=== PATIENT | male | born 1960 | race African-American/Black ===

== ENCOUNTER 2018-03-08 11:26 | Emergency (ER) | payer BC ==
[2018-03-08 11:51] LABS: #Eosinphils 0.3 thou/uL (0.0-0.7); #Lymphocytes 2.6 thou/uL (1.20-3.40); #Monocytes 0.8 thou/uL (0.11-0.59); #Neutrophils 6.2 thou/uL (1.40-6.50); %Basophils 0.3 % (0.0-1.0); %Eosinophils 3.1 % (0.0-10.0); %Monocytes 8.2 % (0.0-10.0); %Neutrophils 62.5 % (42.0-75.0); Hemoglobin 12.3 g/dL (14.0-18.0); Mean Corpuscular HGB CONC 33.8 g/dL (32.0-36.0); Mean Corpuscular Hemoglobin 30.5 pg (27.0-31.0); Mean Corpuscular Volume 90.1 fl (80.0-94.0); Mean Platelet Volume 7.4 fL (7.4-10.4); Platelet Count 284 thou/uL (130-400); RBC Distribution Width 12.7 % (11.5-14.5); Red Blood Cell (RBC) Count 4.04 mill/uL (4.70-6.10); White Blood Cell (WBC) Count 9.9 thou/uL (4.8-10.8)
[2018-03-08 12:14] LABS: ALT (SGPT) 30 U/L (8-55); AST (SGOT) 20 U/L (5-34); Albumin 4.4 g/dL (3.5-5.0); Alkaline Phosphatase 64 U/L (40-150); Anion Gap 15 mmol/L (10-20); BUN (Urea Nitrogen) 55 mg/dL (8.4-25.7); Bilirubin, Total 0.4 mg/dL (0.2-1.2); Calc. Creatinine Clearance 0 mL/min (70-130); Calcium 10.1 mg/dL (7.8-10.44); Carbon Dioxide 17 mmol/L (22-29); Chloride 109 mmol/L (98-107); Estimated GFR-MDRD 22; Globulin 3.9 g/dL (2.4-3.5); Glucose 162 mg/dL (70-105); Protein, Total 8.3 g/dL (6.0-8.3); Sodium 134 mmol/L (136-145)
[2018-03-08 12:23] LABS: Potassium 6.8 mmol/L (3.5-5.1)
[2018-03-08 13:03] LABS: Troponin I 0.027 ng/mL (< 0.028)
[2018-03-08 13:11] LABS: CKMB 6.8 ng/mL (0-6.6)
== END 2018-03-08 14:36 | disposition home or self-care (01) ==
LOC: ERS 11:26
DX: E87.5 Hyperkalemia (principal); I10 Essential (primary) hypertension; E11.9 Type 2 diabetes mellitus without complications; Z79.899 Other long term (current) drug therapy; Z79.84 Long term (current) use of oral hypoglycemic drugs
CPT/HCPCS: 36415; 80053; 82553; 84484; 85025; 93005; 96360

== ENCOUNTER 2020-01-12 04:01 | Inpatient (IN) | payer BC ==
[2020-01-12 04:31] LABS: #Basophils 0.1 thou/uL (0.0-0.2); #Eosinphils 0.2 thou/uL (0.0-0.7); #Lymphocytes 2.2 thou/uL (1.20-3.40); #Monocytes 0.6 thou/uL (0.11-0.59); #Neutrophils 3.3 thou/uL (1.40-6.50); %Basophils 1.2 % (0.0-1.0); %Eosinophils 3.5 % (0.0-10.0); %Lymphocytes 34.2 % (21.0-51.0); %Monocytes 9.3 % (0.0-10.0); %Neutrophils 51.8 % (42.0-75.0); Mean Corpuscular Hemoglobin 30.9 pg (27.0-31.0); Mean Corpuscular Volume 90.7 fL (78.0-98.0); Mean Platelet Volume 9.8 fL (7.4-10.4); Platelet Count 228 thou/uL (130-400); RBC Distribution Width 11.9 % (11.5-14.5); Red Blood Cell (RBC) Count 4.54 mill/uL (4.70-6.10); White Blood Cell (WBC) Count 6.3 thou/uL (4.8-10.8)
[2020-01-12 04:37] LABS: INR-International Normal Ratio 0.9; Prothrombin Time 12.1 SEC (12.0-14.7)
[2020-01-12 05:02] LABS: ALT (SGPT) 31 U/L (8-55); AST (SGOT) 19 U/L (5-34); Albumin 4.1 g/dL (3.5-5.0); Alcohol Less than 10 mg/dL (Less than 10); Alkaline Phosphatase 78 U/L (40-110); Anion Gap 15 mmol/L (10-20); BUN (Urea Nitrogen) 40 mg/dL (8.4-25.7); Bilirubin, Total 0.4 mg/dL (0.2-1.2); Calc. Creatinine Clearance 0 mL/min (70-130); Calcium 9.6 mg/dL (7.8-10.44); Carbon Dioxide 20 mmol/L (22-29); Chloride 94 mmol/L (98-107); Estimated GFR-MDRD 24; Globulin 3.8 g/dL (2.4-3.5); Potassium 4.9 mmol/L (3.5-5.1); Protein, Total 7.9 g/dL (6.0-8.3); Sodium 124 mmol/L (136-145)
[2020-01-12 05:07] LABS: Bacteria/HPF None Seen HPF (None Seen); Bilirubin Negative (Negative); Blood, Urine Trace (Negative); Clarity Clear (Clear); Glucose, Urine (Dipstick) Greater than 1000 mg/dL (Negative); Leukocyte Negative Leu/uL (Negative); Nitrite Negative (Negative); Protein, Urine (Dipstick) 70 mg/dL (Neg-Trace); RBC/HPF 0-3 HPF (0-3); Squamous Epithelial None Seen HPF (0-3); Urobilinogen Normal mg/dL (Less than 2); WBC/HPF 0-3 HPF (0-3)
[2020-01-12 05:11] LABS: Glucose 832 mg/dL (70-105)
[2020-01-12 05:30] LABS: CKMB 5.2 ng/mL (0-6.6)
[2020-01-12] MEDS ORDERED: Insulin Regular 100 units/100 ml in NS IVPB SCH (05:30)
[2020-01-12] MEDS ORDERED: Aspirin 325 MG TAB ONE (05:45)
[2020-01-12] MEDS ORDERED: NS 0.9% w/ 20 MEQ KCL 1,000 ML IV PRN ×2 (05:49)
[2020-01-12] MEDS ORDERED: CCU Electrolyte Replacement 1 EACH IVPB ONE (05:49)
[2020-01-12] MEDS ORDERED: Dextrose 5 %-0.45 % NaCl 1,000 ML IV PRN (05:49)
[2020-01-12] MEDS ORDERED: D5 1/2 NS w/20 mEq KCL 1,000 ML IV PRN (05:49)
[2020-01-12] MEDS ORDERED: Sodium Chloride 0.9% 1,000 ML IV PRN ×4 (05:49)
[2020-01-12] MEDS ORDERED: Potassium Phosphate 12 MMOL in Sodium Chloride 0.9% 250 ML 250 ML IV PRN (05:52)
[2020-01-12] MEDS ORDERED: Magnesium 2 GM/50 ML 2 GM in Premix Bag 1 BAG IVPB PRN (05:52)
[2020-01-12] MEDS ORDERED: PHOS-NAK 1 PKT PACK PO PRN ×2 (05:52)
[2020-01-12] MEDS ORDERED: CCU ELECTROLYTE REPLACEMENT PROTOCOL FS PRN (05:52)
[2020-01-12] MEDS ORDERED: Potassium Phosphate 15 MMOL in Sodium Chloride 0.9% 250 ML 250 ML IV PRN (05:52)
[2020-01-12] MEDS ORDERED: Potassium Phosphate 9 MMOL in Sodium Chloride 0.9% 100 ML IVPB PRN (05:52)
[2020-01-12] MEDS ORDERED: Potassium Chloride 40 MEQ in Premix Bag 1 BAG IVPB PRN (05:52)
[2020-01-12] MEDS ORDERED: Potassium Chloride 40 MEQ in Sodium Chloride 0.9% 250 ML 250 ML IVPB PRN (05:52)
[2020-01-12] MEDS ORDERED: Potassium Chloride 20 MEQ TAB PO PRN (05:52)
[2020-01-12] MEDS ORDERED: Magnesium Oxide 400 MG TAB PO PRN ×2 (05:52)
[2020-01-12] MEDS ORDERED: Labetalol HCl 100 MG/20 ML VIAL ONE (05:55)
[2020-01-12] MEDS ORDERED: HUMULIN R 100 UNITS in Sodium Chloride 0.9% 100 ML IVPB SCH (06:00)
[2020-01-12 06:39] LABS: Anion Gap 15 mmol/L (10-20); BUN (Urea Nitrogen) 40 mg/dL (8.4-25.7); Calc. Creatinine Clearance 0 mL/min (70-130); Calcium 9.1 mg/dL (7.8-10.44); Carbon Dioxide 20 mmol/L (22-29); Chloride 97 mmol/L (98-107); Estimated GFR-MDRD 26; Sodium 127 mmol/L (136-145)
--- NOTE | 2020-01-12 06:44 | HP ---
CHIEF COMPLAINT: Facial droop and impaired speech. HISTORY OF PRESENT ILLNESS: Mr. Anders is a 59-year-old male with past medical history of diabetes mellitus, type 2; hypertension; chronic kidney disease; hyperlipidemia, presented to the emergency room with difficulty speech/dysarthria that started around 4:00 a.m. upon awakening from sleep. The patient was last known well around 11:00 p.m. last night. No confusion. No weakness. The patient was found to have a glucose of 832. Anion gap is normal. The patient also was found to have worsening of kidney function with creatinine of 3.25. Denies fevers, chills, chest pain, vomiting, or diarrhea. The patient was started on IV fluids and insulin. CT of the brain, CTA of brain and neck, no acute finding. The patient is being admitted to hospital for further management. PAST MEDICAL HISTORY: As mentioned above in history of present illness. PAST SURGICAL HISTORY: No surgical history recorded. FAMILY HISTORY: Reviewed and noncontributory. SOCIAL HISTORY: He drinks socially. No smoking history. HOME MEDICATIONS: Please see home medication reconciliation form for updated medications. ALLERGIES: NO KNOWN ALLERGIES. PHYSICAL EXAMINATION: GENERAL: The patient is awake and alert, difficulty speech/dysarthria, some facial twitching on the left. VITAL SIGNS: Blood pressure 172/110, pulse is 102, temperature is 98.7, and pulse oximetry is 97% on room air. HEAD AND NECK: Normocephalic and atraumatic. Neck is supple. Mucous membranes dry. CHEST: Decreased air entry bilaterally. HEART: S1 and S2. Regular. ABDOMEN: Obese and soft. Bowel sounds present. NEUROLOGIC: Awake, alert, and oriented x4. There is dysarthria, twitches on the left side of the mouth, and mild facial drooping. EXTREMITIES: No clubbing. No cyanosis. GENITOURINARY: No suprapubic tenderness. No flank tenderness. LABORATORY DATA: As mentioned above in history of present illness. IMAGING STUDIES: As mentioned above in history of present illness. Also, the patient had troponin of 0.04. The patient denies chest pain. ASSESSMENT: 1. Hyperglycemic hyperosmolar state. 2. Cerebrovascular accident, acute cannot be entirely ruled out. 3. Dysarthria. 4. Hypertensive urgency in the setting of stroke symptoms and hyperglycemia. 5. Acute on chronic renal failure. 6. Hyperlipidemia. PLAN: 1. Admit to IMCU. 2. Continue IV fluids. 3. Insulin. 4. Monitor and control electrolytes. 5. Monitor and control blood pressure. 6. MRI of the brain. 7. Consult Neurology in a.m. for evaluation and further recommendations. 8. Reconcile home medications. 9. DVT prophylaxis appropriate. 10. Expected length of stay, 2 midnights or more. Job ID: [id number]
[2020-01-12 06:55] LABS: Glucose 780 mg/dL (70-105)
[2020-01-12] MEDS ORDERED: Ondansetron PF 4 MG/2 ML Vial IVP PRN (06:57)
[2020-01-12] MEDS ORDERED: Ondansetron ODT 4 MG TAB PO PRN (06:57)
--- NOTE | 2020-01-12 08:01 | CT ---
PRELIMINARY REPORT/[facility]/EMERGENCY AFTER HOURS PROCEDURE Receipt of this report by the clinical staff was confirmed with Lila Bryant MD by Piotr sanchez on Jan 12, 2020 04:58:00 CDT. Addendum electronically signed by Belkys sanchez on January 12, 2020 4:58:11 AM CDT PROCEDURE: CTA Head and Neck . HISTORY: LEFT facial droop and dysarthria. TECHNIQUE: Computerized tomographic angiography of the head and neck was performed after the IV inje ction of iodinated nonionic contrast. Multiplanar and 3-D reformations with maximum intensity and surface-shaded reformations . NOTE: The degree of internal carotid artery stenosis is reported using NASCET criteria. COMPARISONS: None . FINDINGS: Visualized CHEST and Aorta: Unremarkable . NECK RIGHT Carotid: Unremarkable . Vertebral: Unremarkable. RIGHT vertebral artery dominant system. LEFT Carotid: Unremarkable . Vertebral: Unremarkable . Non-vascular soft tissues: Unremarkable . HEAD RIGHT Carotid siphon: Unremarkable . Anterior cerebral: Unremarkable . Middle cerebral: Unremarkable . Posterior cerebral: Unremarkable . LEFT Carotid siphon: Unremarkable . Anterior cerebral: Unremarkable . Middle cerebral: Unremarkable . Posterior cerebral: Unremarkable . Vertebral and Basilar arteries: LEFT vertebral ends in the LEFT posterior inferior cerebellar artery. RIGHT vertebral and basilar artery are unremarkable. Aneurysms and AVMs: None . Dural Sinuses: Unremarkable . Non-vascular brain: No abnormal enhancement . IMPRESSION: No significant vascular abnormality identified. ELECTRONICALLY SIGNED BY: Scottie Gilman MD Jan 12, 2020 4:54:15 AM CDT This report is intended for review by the ordering physician only, in accordance of law. If you recei ve this report in error, please call [facility] at [phone]. FINAL REPORT CT arteriogram neck with IV contrast and 3-D imaging CT arteriogram head with IV contrast and 3-D imaging 01/12/2020, performed on emergency basis at 0432 hours HISTORY: Acute left facial droop. Dysarthria. FINDINGS: Agree with the preliminary report by Dr. Gilman from [facility]. No acute vascular abn ormalities are demonstrated. Good flow into each cerebral and cerebellar system. Diffuse prominence in size of the aortic arch is noted without acute abnormality demonstrated. Code QA. Transcribed Date/Time: 01/12/2020 8:34 AM
[2020-01-12] MEDS: hydrALAZINE 20 MG/ML VIAL SLOW IVP PRN ×2 (08:08→12:26)
[2020-01-12] MEDS: Aspirin 325 mg Enteric Coated Tablet PO SCH (08:10)
--- NOTE | 2020-01-12 08:39 | CT ---
PRELIMINARY REPORT/[facility]/EMERGENCY AFTER HOURS PROCEDURE: Receipt of this report by the clinical staff was confirmed with Franci Han RN by Blane Tan on Jan 12, 2020 04:43:00 CDT. Addendum electronically signed by Aria Tan on January 12, 2020 4:43:54 AM CDT PROCEDURE: CT Head without Contrast . HISTORY: Rule out stroke. TECHNIQUE: Axial images were performed without the administration of IV contrast with or without mult iplanar reformations . COMPARISON: None . FINDINGS: Brain shows no mass, hemorrhage, or acute stroke. Mild periventricular old microischemic changes. Mild diffuse cerebral and cerebellar atrophy. Ventricles are normal size for patient's age. No acute skull or scalp abnormality. Visualized sinuses and mastoids are clear. IMPRESSION: No acute intracranial abnormality. Senescent changes . ELECTRONICALLY SIGNED BY: Scottie Gilman MD Jan 12, 2020 4:35:09 AM CDT This report is intended for review by the ordering physician only, in accordance of law. If you recei ve this report in error, please call [facility] at [phone]. FINAL REPORT EMERGENCY AFTER HOURS CT BRAIN: IMPRESSION: I agree with the preliminary interpretation given by [facility]. No evidence for intracranial hemorrhage or mass effect. POS: WEND[facility]
[2020-01-12 08:43] LABS: Troponin I 0.059 ng/mL (< 0.028)
[2020-01-12 08:46] VITALS: BMI 34.3
[2020-01-12] MEDS: Heparin 5,000 UNITS/ML VIAL SC SCH ×2 (08:56→20:39)
[2020-01-12] MEDS ORDERED: Iopamidol-370 76% 500 ML 1 ML ONE (09:21)
--- NOTE | 2020-01-12 11:20 | MRI ---
MRI OF BRAIN: DATE: 01/12/2020. PROVIDED CLINICAL HISTORY: Slurred speech. FINDINGS: The ventricular system appears normal in size and morphology. There is no evidence for intracranial hemorrhage or mass effect. There is no restricted diffusion to suggest recent infarction. Chronic m icrovascular ischemic changes are seen involving the cerebral white matter. Appropriate flow voids a re seen within the major intracranial vessels. The extracranial soft tissues and calvarial marrow si gnal demonstrate no significant abnormality. IMPRESSION: No evidence for an acute intracranial abnormality. POS: WENDY
[2020-01-12] MEDS ORDERED: HumaLOG 300 UNITS/3 ML VIAL SC SCH ×3 (12:00→17:00)
[2020-01-12 12:21] LABS: Hemoglobin A1c Greater than 14.0 % (4.0-6.0)
[2020-01-12 12:30] LABS: Anion Gap 13 mmol/L (10-20); BUN (Urea Nitrogen) 33 mg/dL (8.4-25.7); Calc. Creatinine Clearance 50 mL/min (70-130); Calcium 9.2 mg/dL (7.8-10.44); Carbon Dioxide 19 mmol/L (22-29); Chloride 107 mmol/L (98-107); Estimated GFR-MDRD 31; Glucose 396 mg/dL (70-105); Potassium 4.1 mmol/L (3.5-5.1); Sodium 135 mmol/L (136-145)
[2020-01-12 12:37] LABS: Troponin I 0.066 ng/mL (< 0.028)
[2020-01-12] MEDS ORDERED: cloNIDine 0.1 MG TAB PO PRN (14:06)
--- NOTE | 2020-01-12 14:12 | PDOC.HOSPP ---
- Subjective Encounter Date: 01/12/20 Encounter Time: 10:30 Subjective: pt up in bed no complains. - Objective Vital Signs & Weight: Vital Signs (12 hours) Temp Pulse Resp BP BP Pulse Ox 01/12/20 12:56 97.8 F 106 H 18 162/86 H 98 01/12/20 12:26 95 165/101 H 01/12/20 08:00 97 Weight Weight 253 lb 1.451 oz Most Recent Monitor Data Heart Rate from ECG 100 NIBP 156/102 NIBP BP-Mean 120 Respiration from ECG 24 SpO2 99 I&O: 01/11/20 01/12/20 01/13/20 06:59 06:59 06:59 Intake Total 1616 Output Total 1150 Balance 466 Result Diagrams: 01/12/20 04:01/12/20 12:01 Additional Labs: Accuchecks 01/12/20 01/12/20 01/12/20 12:22 10:47 09:54 POC Glucose 429 H 414 H 422 H Hospitalist ROS - Review of Systems Cardiovascular: denies: chest pain, palpitations, orthopnea, paroxysmal noc. dyspnea, edema, light headedness, other Gastrointestinal: denies: nausea, vomiting, abdominal pain, diarrhea, constipation, melena, hematochezia, other Genitourinary: denies: dysuria, frequency, incontinence, hematuria, retention, other - Medication Medications: Active Medications Generic Name Dose Route Start Last Admin Trade Name Freq PRN Reason Stop Dose Admin Aspirin 325 mg 01/12/20 09:00 01/12/20 08:10 Ecotrin PO Not Given DAILY [facility] Heparin Sodium (Porcine) 5,000 units 01/12/20 09:00 01/12/20 08:56 Heparin SC 5,000 units Q12HR GEOFF Administration Hydralazine HCl 10 mg 01/12/20 06:09 01/12/20 12:26 Apresoline SLOW IVP 10 mg Q4H PRN Administration Hypertension Insulin Human Lispro 10 units 01/12/20 12:30 01/12/20 12:30 Humalog SC 01/12/20 15:00 10 unit NOW GEOFF Administration - Exam Neck: negative: supple, symmetric, no JVD, no thyromegaly, no lymphadenopathy, no carotid bruit, JVD Heart: negative: RRR, no murmur, no gallops, no rubs, normal peripheral pulses, irregular, diminshed peripheral pulses, murmur present, II/IV, III/IV Respiratory: negative: CTAB, no wheezes, no rales, no ronchi, normal chest expansion, no tachypnea, normal percussion, rales, rhonchi, tachypneic, wheezes Gastrointestinal: negative: soft, non-tender, non-distended, normal bowel sounds , no palpable masses, no hepatomegaly, no splenomegaly, no bruit, no guarding, no rigidity, tender to palpation, distended, diminished bowl sounds, voluntary guarding Neurological: negative: cranial nerve grossly intact, normal sensation to touch , no weakness, no focal deficits, no new deficit, facial droop, hemiplegia, speech deficit, vision deficit Neurological - other findings: right eye brow is lower than the left Hosp A/P (1) Hyperglycemic hyperosmolar nonketotic coma Code(s): E11.01 - TYPE 2 DIABETES MELLITUS WITH HYPEROSMOLARITY WITH COMA Status: Acute (2) Slurred speech Code(s): R47.81 - SLURRED SPEECH Status: Acute (3) Hypertensive urgency Code(s): I16.0 - HYPERTENSIVE URGENCY Status: Acute - Plan pt's hbg alc is 14 will start him on iv insulin for now. will advance his diet. MRi negative. slurred speech possible due to tia vs elevated blood sugar. will continue asa and statin for now. possible discharge him in am.
[2020-01-12] MEDS ORDERED: Amlodipine 10 MG TAB PO SCH (14:15)
[2020-01-12] MEDS: hydrALAZINE 25 MG TAB PO SCH ×2 (15:42→20:40)
[2020-01-12 16:21] LABS: Anion Gap 11 mmol/L (10-20); BUN (Urea Nitrogen) 31 mg/dL (8.4-25.7); Calc. Creatinine Clearance 49 mL/min (70-130); Calcium 9.6 mg/dL (7.8-10.44); Carbon Dioxide 22 mmol/L (22-29); Chloride 106 mmol/L (98-107); Estimated GFR-MDRD 30; Glucose 380 mg/dL (70-105); Potassium 4.1 mmol/L (3.5-5.1); Sodium 135 mmol/L (136-145)
--- NOTE | 2020-01-12 17:25 | CON ---
DATE OF TELENEUROLOGY CONSULTATION: 01/12/2020 CHIEF COMPLAINT: Slurred speech. HISTORY OF PRESENT ILLNESS: The patient is a 59-year-old man with known hypertension and hyperglycemia. He reports he had slurred speech and blurred vision in both eyes, which lasted a few hours yesterday, all of this has resolved now. He has no weakness or numbness or dizziness or loss of consciousness. PREVIOUS MEDICAL HISTORY: Positive for hypertension and diabetes. Lately, his blood sugars have been high. He also was going through some change in his medication, particularly with clonidine patch which has been changed to 0.3 mg for the last one month. He also has a renal failure, hypercholesterolemia. FAMILY HISTORY: Father in his 60s. He had cancer but was not close to his family. His mother at 75, she had bone cancer. The patient had 4 brothers , one sister who in her 50s, she was very sick, details are not known and the patient has three boys and a girl, all are healthy and he has two other sisters who are alive and healthy. PAST SURGICAL HISTORY: None. SOCIAL HISTORY: Lives with his family. Nonsmoker. No alcohol use. REVIEW OF SYSTEMS: PULMONARY: Negative for shortness of breath or cough. GI: Negative for nausea, vomiting, or diarrhea. OPHTHALMOLOGIC: Positive for blurred vision. DERMATOLOGIC: Negative for any skin lesion. ENT: Negative for hearing problem. ENDOCRINE: Positive for diabetes. PHYSICAL EXAMINATION: GENERAL APPEARANCE: Well-built, well-nourished gentleman, who is comfortable in bed. CHEST: Clear vesicular breathing. CARDIOVASCULAR: S1 and S2 heard. No murmurs. ABDOMEN: Soft. VITAL SIGNS: Temperature 97.8, pulse 106, blood pressure 162/86. NEUROLOGIC: Higher intellectual functions; normal orientation to time, place, person. Appropriate conversation. Cranial nerves 2 through 12 normal extraocular movements. Pupils 2 mm bilaterally, reactive to light. Normal sensation of face. Normal hearing to finger rub. Normal elevation of palate. Tongue midline. No facial asymmetry. Motor; bulk normal, tone normal. Strength 5/5 throughout in iliopsoas, hamstrings, quadriceps, ankle dorsiflexion, plantar flexion, deltoid, biceps, triceps, wrist extension and flexion, finger extension and flexion bilaterally. Deep tendon reflexes 2+ throughout and sensory normal to touch bilaterally. Cerebellar, normal [id number], [id number]. LABORATORY WORKUP: White count 6.3, hemoglobin 14, hematocrit 41.2, platelet count 228. Chemistry; sodium 135, potassium 4.1, chloride 107, bicarb 19, BUN 33, creatinine 2.59, glucose 396. Lipid profile is pending at this time. TSH is also pending. He had a CT of the head which was reviewed yesterday and CT did not show any acute intracranial abnormality. CT soboba of [place] with contrast showed no specific intracranial lesions or vascular abnormalities. He is pending MRI of the brain. IMPRESSION: The patient is a 59-year-old man, who came in with slurred speech in the setting of hypertension. I suspect which has all resolved. At this time, his examination is normal and I do think this patient had likely a transient ischemic attack. I would suggest MRI of brain without contrast in view of his renal impairment and we will make sure he did not have any acute stroke. The patient does have carotid Doppler and carotid artery studies pending and echocardiogram pending as well. TREATMENT RECOMMENDATION: Would be to continue aspirin along with a statin and the patient can come back and can follow up with his regular physician. Job ID: [id number] [facility]
[2020-01-12] MEDS ORDERED: Labetalol HCl 100 MG/20 ML VIAL SLOW IVP SCH (18:15)
[2020-01-12] MEDS ORDERED: HumaLOG 300 UNITS/3 ML VIAL SC PRN (20:37)
[2020-01-12] MEDS: Atorvastatin Calcium 40 MG TAB PO SCH (20:39)
[2020-01-12] MEDS ORDERED: Insulin Glargine 12 UNITS in Pre-Filled Syringe 1 EACH SC SCH (21:00)
[2020-01-13] MEDS ORDERED: Labetalol HCl 100 MG/20 ML VIAL SLOW IVP SCH ×2 (00:45→17:30)
[2020-01-13 04:49] LABS: Anion Gap 13 mmol/L (10-20); BUN (Urea Nitrogen) 30 mg/dL (8.4-25.7); Calc. Creatinine Clearance 47 mL/min (70-130); Calcium 9.1 mg/dL (7.8-10.44); Carbon Dioxide 20 mmol/L (22-29); Cardiac Risk 6.1 (Less than 4.5); Chloride 107 mmol/L (98-107); Cholesterol 158 mg/dl (< 200 Desired); Estimated GFR-MDRD 29; Glucose 450 mg/dL (70-105); HDL Cholesterol 26 mg/dL (>60 Neg Risk); Potassium 4.1 mmol/L (3.5-5.1); Sodium 136 mmol/L (136-145); Triglycerides 483 mg/dL (Less than 150)
[2020-01-13] MEDS: HumaLOG 300 UNITS/3 ML VIAL SC PRN ×3 (06:31→16:04)
[2020-01-13] MEDS: Fenofibrate Nanocrystallized 145 MG TAB PO SCH (08:47)
[2020-01-13] MEDS: Aspirin 325 mg Enteric Coated Tablet PO SCH (08:48)
[2020-01-13] MEDS: Heparin 5,000 UNITS/ML VIAL SC SCH ×2 (08:48→19:56)
[2020-01-13] MEDS: NIFEdipine XL 90 MG TAB PO SCH (08:48)
[2020-01-13] MEDS ORDERED: HumuLIN 70/30 (300 UNITS/3 ML VIAL) SC SCH (09:00)
[2020-01-13] MEDS ORDERED: hydrALAZINE 25 MG TAB PO SCH (09:00)
[2020-01-13] MEDS ORDERED: cloNIDine 0.1mg/24 Hour PATCH TD SCH (09:00)
[2020-01-13] MEDS ORDERED: Insulin Glargine 15 UNITS in Pre-Filled Syringe 1 EACH SC SCH (09:00)
[2020-01-13] MEDS ORDERED: Amlodipine 10 MG TAB PO SCH (09:00)
[2020-01-13] MEDS ORDERED: Minoxidil 2.5 MG TAB PO SCH (09:00)
[2020-01-13] MEDS ORDERED: Clopidogrel Bisulfate 75 MG TAB PO SCH ×2 (13:38→13:45)
[2020-01-13] MEDS ORDERED: Insulin Regular 300 UNITS/3 ML VIAL IVP SCH (13:45)
[2020-01-13] MEDS: hydrALAZINE 25 MG TAB PO SCH ×2 (15:57→19:57)
[2020-01-13] MEDS ORDERED: Nitroglycerin 0.4 MG TAB (25 Tab Bottle) SL SCH (16:15)
--- NOTE | 2020-01-13 18:20 | PDOC.HOSPP ---
- Subjective Encounter Date: 01/13/20 Encounter Time: 09:00 Subjective: pt up in chair wanted to go home. His blood sugar has been uncontrolled and so has his bp. - Objective Vital Signs & Weight: Vital Signs (12 hours) Temp Pulse Resp BP BP Pulse Ox 01/13/20 18:10 95 187/97 H 01/13/20 18:01 94 01/13/20 17:59 94 169/94 H 01/13/20 16:28 106 H 156/96 H 01/13/20 16:15 112 H 157/100 H 01/13/20 15:57 92 204/102 H 01/13/20 15:53 204/102 H 01/13/20 15:52 204/111 H 01/13/20 15:50 98.8 F 105 H 16 207/102 H 98 01/13/20 11:44 99.0 F 92 18 179/91 H 99 01/13/20 08:48 104 H 99 01/13/20 08:45 97.9 F 104 H 16 174/100 H 99 Weight Weight 253 lb 1.451 oz Most Recent Monitor Data Heart Rate from ECG 100 NIBP 156/102 NIBP BP-Mean 120 Respiration from ECG 24 SpO2 99 I&O: 01/12/20 01/13/20 01/14/20 06:59 06:59 06:59 Intake Total 1616 Output Total 1150 Balance 466 Result Diagrams: 01/12/20 04:20 01/13/20 04:07 Additional Labs: Accuchecks 01/13/20 01/13/20 01/13/20 16:07 11:26 06:31 POC Glucose 431 H 527 H 459 H 01/13/20 01/12/20 01:49 20:24 POC Glucose 388 H 435 H Hospitalist ROS - Review of Systems Cardiovascular: denies: chest pain, palpitations, orthopnea, paroxysmal noc. dyspnea, edema, light headedness, other Gastrointestinal: denies: nausea, vomiting, abdominal pain, diarrhea, constipation, melena, hematochezia, other Genitourinary: denies: dysuria, frequency, incontinence, hematuria, retention, other - Medication Medications: Active Medications Generic Name Dose Route Start Last Admin Trade Name Freq PRN Reason Stop Dose Admin Aspirin 325 mg 01/12/20 09:00 04/05/20 08:48 Ecotrin PO 325 mg DAILY GEOFF Administration Atorvastatin Calcium 40 mg 01/12/20 21:00 01/12/20 20:39 Lipitor PO 40 mg HS GEOFF Administration Clonidine 0.3 mg 01/13/20 09:00 01/13/20 08:47 [id number] Patch TD Not Given Q7D GEOFF Fenofibrate 145 mg 01/13/20 09:00 01/13/20 08:47 Tricor PO 145 mg DAILY GEOFF Administration Heparin Sodium (Porcine) 5,000 units 01/12/20 09:00 01/13/20 08:48 Heparin SC 5,000 units Q12HR GEOFF Administration Hydralazine HCl 10 mg 01/12/20 06:09 01/12/20 12:26 Apresoline SLOW IVP 10 mg Q4H PRN Administration Hypertension Hydralazine HCl 50 mg 01/13/20 15:00 01/13/20 15:57 Apresoline PO 50 mg TID GEOFF Administration Insulin Human Lispro 0 units 01/12/20 20:37 01/12/20 21:35 Humalog SC 5 unit .BEDTIME SLIDING SC PRN Administration Bedtime Correctional Scale Insulin Human Lispro 0 units 01/13/20 13:23 01/13/20 16:04 Humalog SC 13 unit .AGGRESSIVE SLIDING PRN Administration AGGRESSIVE SLIDING SCALE Protocol Labetalol HCl 10 mg 01/13/20 17:30 01/13/20 18:01 Normodyne SLOW IVP 01/13/20 19:30 10 mg NOW GEOFF Administration Metoprolol Succinate 100 mg 01/13/20 09:00 01/13/20 08:48 Toprol Xl PO 100 mg DAILY GEOFF Administration Nifedipine 90 mg 01/13/20 09:00 01/13/20 08:48 Procardia Xl PO 90 mg DAILY GEOFF Administration Nitroglycerin 0.4 mg 01/13/20 16:15 01/13/20 16:09 Nitrostat SL 01/13/20 18:15 0.4 mg NOW GEOFF Administration - Exam Neck: negative: supple, symmetric, no JVD, no thyromegaly, no lymphadenopathy, no carotid bruit, JVD Heart: negative: RRR, no murmur, no gallops, no rubs, normal peripheral pulses, irregular, diminshed peripheral pulses, murmur present, II/IV, III/IV Respiratory: negative: CTAB, no wheezes, no rales, no ronchi, normal chest expansion, no tachypnea, normal percussion, rales, rhonchi, tachypneic, wheezes Gastrointestinal: negative: soft, non-tender, non-distended, normal bowel sounds , no palpable masses, no hepatomegaly, no splenomegaly, no bruit, no guarding, no rigidity, tender to palpation, distended, diminished bowl sounds, voluntary guarding Hosp A/P (1) Hyperglycemic hyperosmolar nonketotic coma Code(s): E11.01 - TYPE 2 DIABETES MELLITUS WITH HYPEROSMOLARITY WITH COMA Status: Acute (2) Slurred speech Code(s): R47.81 - SLURRED SPEECH Status: Acute (3) Hypertensive urgency Code(s): I16.0 - HYPERTENSIVE URGENCY Status: Acute - Plan pt's hbg alc is 14 will start him on iv insulin for now. will advance his diet. MRi negative. slurred speech possible due to tia vs elevated blood sugar. will continue asa and statin for now. possible discharge him in am. 4/5 His insulin has been adjusted. He keeps having elevated bp and starts to have slurred speech. will add plavix. I did talk to him about diet/weight loss and sugar control. he is at a high risk of stroke and heart attack. it has been very difficult to manage his bp. He states that he cannot take mindoxil due to its side effects. His episodes of slurred speech is most likley due to his tia for elevated bp. If needed may send him to icu for zachery carrillo.
[2020-01-13] MEDS: Atorvastatin Calcium 40 MG TAB PO SCH (19:55)
[2020-01-13] MEDS: HumuLIN 70/30 (300 UNITS/3 ML VIAL) SC SCH (19:56)
[2020-01-13] MEDS: NIFEdipine XL 30 MG TAB PO SCH (19:58)
[2020-01-14 04:58] LABS: Anion Gap 12 mmol/L (10-20); BUN (Urea Nitrogen) 28 mg/dL (8.4-25.7); Calc. Creatinine Clearance 48 mL/min (70-130); Calcium 9.3 mg/dL (7.8-10.44); Carbon Dioxide 22 mmol/L (22-29); Chloride 106 mmol/L (98-107); Estimated GFR-MDRD 30; Glucose 243 mg/dL (70-105); Potassium 3.7 mmol/L (3.5-5.1); Sodium 136 mmol/L (136-145)
[2020-01-14] MEDS: HumaLOG 300 UNITS/3 ML VIAL SC PRN ×3 (06:35→18:07)
--- NOTE | 2020-01-14 08:30 | ULT ---
ABDOMINAL AORTIC ULTRASOUND: INDICATION: Abnormal abdominal aorta noted on echocardiogram. FINDINGS: The proximal aorta shows aneurysmal dilatation of the aorta with maximal diameter measured at 3.9 to 4.0 cm in the sagittal plane. The mid abdominal aorta diameter measured at 1.7 cm. The distal abdominal aorta diameter measured at 1.9 cm. The color Doppler flow with spectral analysis with triphasic flow is seen throughout the ab dominal aorta. IMPRESSION: Aneurysmal dilatation of the proximal abdominal aorta. POS: [facility]
[2020-01-14] MEDS: Clopidogrel Bisulfate 75 MG TAB PO SCH (08:51)
[2020-01-14] MEDS: NIFEdipine XL 90 MG TAB PO SCH (08:52)
[2020-01-14] MEDS: hydrALAZINE 25 MG TAB PO SCH ×3 (08:52→21:11)
[2020-01-14] MEDS: Fenofibrate Nanocrystallized 145 MG TAB PO SCH (08:52)
[2020-01-14] MEDS: Aspirin 325 mg Enteric Coated Tablet PO SCH (08:52)
[2020-01-14] MEDS: Heparin 5,000 UNITS/ML VIAL SC SCH ×2 (09:01→21:11)
[2020-01-14] MEDS: HumuLIN 70/30 (300 UNITS/3 ML VIAL) SC SCH ×2 (09:02→21:11)
[2020-01-14] MEDS ORDERED: Lisinopril 20 MG TAB PO SCH (10:42)
[2020-01-14] MEDS ORDERED: hydrALAZINE 25 MG TAB PO SCH (10:45)
[2020-01-14] MEDS ORDERED: Losartan 25 MG TAB PO SCH (10:45)
[2020-01-14] MEDS ORDERED: levETIRAcetam 500 MG TAB PO SCH (12:30)
[2020-01-14] MEDS ORDERED: levETIRAcetam In NaCl (Iso-Os) 2,000 MG in Premix Bag 1 BAG IVPB SCH (12:45)
[2020-01-14] MEDS ORDERED: HumaLOG 300 UNITS/3 ML VIAL SC SCH (12:45)
[2020-01-14] MEDS ORDERED: levETIRAcetam 2,000 MG in Sodium Chloride 0.9% 100 ML IVPB SCH (12:45)
--- NOTE | 2020-01-14 14:59 | CON ---
DATE OF CONSULTATION: 01/14/2020 CONSULTING PHYSICIAN: Hospitalist Service. IMPRESSION: New onset seizures with speech arrest. PLAN: 1. Loading dose of Keppra 2000 mg followed by 500 mg twice a day. 2. Office followup. HISTORY OF PRESENT ILLNESS: Mr. Anders is a 59-year-old male with a past history of hypertension, diabetes, renal insufficiency, who came into the hospital with an episode of transient aphasia. His initial CT of the brain was negative. CT angiogram did not show any evidence of stenosis. He had a followup MRI of the brain, which was also unremarkable other than some small-vessel ischemic changes. Echocardiogram showed 55% ejection fraction. His laboratory studies were unremarkable other than blood sugars in the upper 200s. BUN of 28 and creatinine of 2.67. The patient had further witnessed episodes lasting approximately 5 minutes where he was unable to speak and had some focal facial twitching. We obtained an EEG today and were able to capture an episode. There appeared to be fairly rapid onset of generalized dysrhythmic activity that lasted a brief interval and resolved spontaneously. He is back to his baseline. PAST MEDICAL HISTORY: As listed above. ALLERGIES: NONE. SOCIAL HISTORY: Tobacco use. FAMILY HISTORY: Noncontributory. REVIEW OF SYSTEMS: 10-system review of systems is otherwise negative. PHYSICAL EXAMINATION: VITAL SIGNS: Blood pressure 138/79, pulse 99, temperature 98.4. HEENT: Pupils are equal. Conjunctivae clear. Oropharynx clear. NECK: Supple. EXTREMITIES: No cyanosis. NEUROLOGIC: He is alert and appropriate. His speech is fluent and clear. He has no focal deficits. No abnormal movements were seen. IMAGING STUDIES/LABORATORY DATA: Imaging and lab work were all reviewed. SUMMARY: This is a 59-year-old male with new onset of seizure activity, which appears to cause speech arrest and some facial twitching. Hopefully, the Keppra will take care of the problem. We will be happy to follow up with him as an outpatient. Job ID: [id number]
--- NOTE | 2020-01-14 15:18 | EEG ---
Referring Physician: Godwin OLEARY EEG # [id number] TEST TYPE: ROUTINE PORTABLE INPATIENT REPORT: AN EEG USING THE [employer]NATIONAL TEN-TWENTY SYSTEM OF ELECTRODE PLACEMENT WAS PERFORMED. The waking background is a medium amplitude 10 hertz alpha frequency. Hyperventilation and photic stimulation were unremarkable. There was a single episode of generalized dysrhythmic activity which had some sharp and slow wave components during the episode. IMPRESSION: THIS IS AN ABNORMAL STUDY FOR THE FINDINGS OF A GENERALIZED EPILEPTIFORM EVENT CORRELATING WITH THE PATIENT'S TRANSIENT NEUROLOGIC SYMPTOMS. [employer] Manager: ADAMA Collar Folder Operator: EEG.NAVEED ALBA
--- NOTE | 2020-01-14 16:36 | CT ---
PRELIMINARY REPORT/[facility]/EMERGENCY AFTER HOURS PROCEDURE Receipt of this report by the clinical staff was confirmed with Lila Bryant MD by Piotr sanchez on Jan 12, 2020 04:58:00 CDT. Addendum electronically signed by Belkys sanchez on January 12, 2020 4:58:11 AM CDT PROCEDURE: CTA Head and Neck . HISTORY: LEFT facial droop and dysarthria. TECHNIQUE: Computerized tomographic angiography of the head and neck was performed after the IV inje ction of iodinated nonionic contrast. Multiplanar and 3-D reformations with maximum intensity and surface-shaded reformations . NOTE: The degree of internal carotid artery stenosis is reported using NASCET criteria. COMPARISONS: None . FINDINGS: Visualized CHEST and Aorta: Unremarkable . NECK RIGHT Carotid: Unremarkable . Vertebral: Unremarkable. RIGHT vertebral artery dominant system. LEFT Carotid: Unremarkable . Vertebral: Unremarkable . Non-vascular soft tissues: Unremarkable . HEAD RIGHT Carotid siphon: Unremarkable . Anterior cerebral: Unremarkable . Middle cerebral: Unremarkable . Posterior cerebral: Unremarkable . LEFT Carotid siphon: Unremarkable . Anterior cerebral: Unremarkable . Middle cerebral: Unremarkable . Posterior cerebral: Unremarkable . Vertebral and Basilar arteries: LEFT vertebral ends in the LEFT posterior inferior cerebellar artery. RIGHT vertebral and basilar artery are unremarkable. Aneurysms and AVMs: None . Dural Sinuses: Unremarkable . Non-vascular brain: No abnormal enhancement . IMPRESSION: No significant vascular abnormality identified. ELECTRONICALLY SIGNED BY: Scottie Gilman MD Jan 12, 2020 4:54:15 AM CDT This report is intended for review by the ordering physician only, in accordance of law. If you recei ve this report in error, please call [facility] at [phone]. FINAL REPORT CT arteriogram neck with IV contrast and 3-D imaging CT arteriogram head with IV contrast and 3-D imaging 01/12/2020, performed on emergency basis at 0432 hours HISTORY: Acute left facial droop. Dysarthria. FINDINGS: Agree with the preliminary report by Dr. Gilman from [facility]. No acute vascular abn ormalities are demonstrated. Good flow into each cerebral and cerebellar system. Diffuse prominence in size of the aortic arch is noted without acute abnormality demonstrated. Code QA. Transcribed Date/Time: 01/14/2020 4:35 PM
--- NOTE | 2020-01-14 19:04 | PDOC.HOSPP ---
- Objective Vital Signs & Weight: Vital Signs (12 hours) Temp Pulse Resp BP BP BP Pulse Ox 01/14/20 15:35 95 134/78 01/14/20 15:33 98.9 F 95 20 134/78 97 01/14/20 13:15 99 138/79 01/14/20 12:07 92 177/90 H 01/14/20 12:05 98.4 F 92 20 177/90 H 98 01/14/20 10:30 98.2 F 95 20 164/88 H 98 01/14/20 08:52 91 180/96 H 01/14/20 07:21 91 20 180/96 H 98 Weight Weight 253 lb 1.451 oz Most Recent Monitor Data Heart Rate from ECG 100 NIBP 156/102 NIBP BP-Mean 120 Respiration from ECG 24 SpO2 99 I&O: 01/13/20 01/14/20 01/15/20 06:59 06:59 06:59 Intake Total 1616 150 540 Output Total 1150 825 Balance 466 -675 540 Result Diagrams: 01/12/20 04:20 01/14/20 04:11 Additional Labs: Accuchecks 01/14/20 01/14/20 01/14/20 16:28 12:07 09:05 POC Glucose 265 H 348 H 397 H 01/14/20 01/13/20 01/13/20 06:15 21:52 19:50 POC Glucose 283 H 290 H 348 H 01/13/20 01/12/20 01/12/20 18:13 07:48 05:53 POC Glucose 301 H Greater than 550 H* Greater than 550 H* 01/12/20 04:24 POC Glucose Greater than 550 H* Hospitalist ROS - Medication Medications: Active Medications Generic Name Dose Route Start Last Admin Trade Name Freq PRN Reason Stop Dose Admin Aspirin 325 mg 01/12/20 09:00 01/14/20 08:52 Ecotrin PO 325 mg DAILY GEOFF Administration Atorvastatin Calcium 40 mg 01/12/20 21:00 01/13/20 19:55 Lipitor PO 40 mg HS GEOFF Administration Clonidine 0.3 mg 01/13/20 09:00 01/13/20 08:47 Jprlnbmc-Vwk-0 Patch TD Not Given Q7D GEOFF Clopidogrel Bisulfate 75 mg 01/14/20 09:00 01/14/20 08:51 Plavix PO 75 mg DAILY GEOFF Administration Fenofibrate 145 mg 01/13/20 09:00 01/14/20 08:52 Tricor PO 145 mg DAILY GEOFF Administration Heparin Sodium (Porcine) 5,000 units 01/12/20 09:00 01/14/20 09:01 Heparin SC 5,000 units Q12HR GEOFF Administration Hydralazine HCl 10 mg 01/12/20 06:09 01/12/20 12:26 Apresoline SLOW IVP 10 mg Q4H PRN Administration Hypertension Hydralazine HCl 75 mg 01/14/20 15:00 01/14/20 15:35 Apresoline PO 75 mg TID GEOFF Administration Insulin Human Isoph/Insulin Regular 40 units 01/13/20 21:00 01/14/20 09:02 Humulin 70/30 SC 40 unit BID GEOFF Administration Insulin Human Lispro 0 units 01/12/20 20:37 01/12/20 21:35 Humalog SC 5 unit .BEDTIME SLIDING SC PRN Administration Bedtime Correctional Scale Insulin Human Lispro 0 units 01/13/20 13:23 01/14/20 12:11 Humalog SC 11 unit .AGGRESSIVE SLIDING PRN Administration AGGRESSIVE SLIDING SCALE Protocol Metoprolol Succinate 100 mg 01/13/20 09:00 01/14/20 08:52 Toprol Xl PO 100 mg DAILY GEOFF Administration Nifedipine 30 mg 01/13/20 21:00 01/13/20 19:58 Procardia Xl PO 30 mg HS GEOFF Administration Nifedipine 90 mg 01/13/20 09:00 01/14/20 08:52 Procardia Xl PO 90 mg DAILY GEOFF Administration Hosp A/P (1) Hyperglycemic hyperosmolar nonketotic coma Code(s): E11.01 - TYPE 2 DIABETES MELLITUS WITH HYPEROSMOLARITY WITH COMA Status: Acute (2) Slurred speech Code(s): R47.81 - SLURRED SPEECH Status: Acute (3) Hypertensive urgency Code(s): I16.0 - HYPERTENSIVE URGENCY Status: Acute - Plan pt's hbg alc is 14 will start him on iv insulin for now. will advance his diet. MRi negative. slurred speech possible due to tia vs elevated blood sugar. will continue asa and statin for now. possible discharge him in am. 4/5 His insulin has been adjusted. He keeps having elevated bp and starts to have slurred speech. will add plavix. I did talk to him about diet/weight loss and sugar control. he is at a high risk of stroke and heart attack. it has been very difficult to manage his bp. He states that he cannot take mindoxil due to its side effects. His episodes of slurred speech is most likley due to his tia for elevated bp. If needed may send him to icu for cardene gerardo.
[2020-01-14] MEDS: Atorvastatin Calcium 40 MG TAB PO SCH (21:10)
[2020-01-14] MEDS: NIFEdipine XL 30 MG TAB PO SCH (21:10)
[2020-01-14] MEDS: levETIRAcetam 500 MG TAB PO SCH (21:11)
[2020-01-15 05:50] LABS: Anion Gap 13 mmol/L (10-20); BUN (Urea Nitrogen) 31 mg/dL (8.4-25.7); Calc. Creatinine Clearance 47 mL/min (70-130); Calcium 8.8 mg/dL (7.8-10.44); Carbon Dioxide 20 mmol/L (22-29); Chloride 105 mmol/L (98-107); Estimated GFR-MDRD 29; Glucose 306 mg/dL (70-105); Potassium 3.8 mmol/L (3.5-5.1); Sodium 134 mmol/L (136-145)
[2020-01-15] MEDS: HumaLOG 300 UNITS/3 ML VIAL SC PRN ×3 (06:32→18:00)
[2020-01-15] MEDS: HumuLIN 70/30 (300 UNITS/3 ML VIAL) SC SCH ×2 (08:14→21:34)
[2020-01-15] MEDS: Heparin 5,000 UNITS/ML VIAL SC SCH ×2 (08:14→21:33)
[2020-01-15] MEDS: NIFEdipine XL 90 MG TAB PO SCH (08:16)
[2020-01-15] MEDS: hydrALAZINE 25 MG TAB PO SCH ×3 (08:16→21:34)
[2020-01-15] MEDS: Fenofibrate Nanocrystallized 145 MG TAB PO SCH (08:17)
[2020-01-15] MEDS: Aspirin 325 mg Enteric Coated Tablet PO SCH (08:17)
[2020-01-15] MEDS: levETIRAcetam 500 MG TAB PO SCH ×2 (08:17→21:35)
[2020-01-15] MEDS: Clopidogrel Bisulfate 75 MG TAB PO SCH (08:18)
[2020-01-15] MEDS ORDERED: glyBURIDE 2.5 MG TAB PO SCH (08:45)
[2020-01-15] MEDS ORDERED: Losartan 25 MG TAB PO SCH ×3 (09:00→09:45)
[2020-01-15] MEDS ORDERED: cloNIDine 0.1mg/24 Hour PATCH TD SCH (10:00)
--- NOTE | 2020-01-15 10:04 | CON ---
DATE OF CONSULTATION: HISTORY OF PRESENT ILLNESS: Mr. Anders is a 59-year-old black male with known history of chronic renal failure from diabetic/hypertensive nephropathy and was initially admitted due to slurring of speech. He had several imaging done, which included a brain MRI with no evidence of acute intracranial abnormality. We are now being consulted for his acute kidney injury on top of his chronic renal failure. Please note, his initial creatinine on admission was noted to be at 2.99 mg% and it is now currently at 2.75 mg%, creatinine has been fluctuating. We are here for further evaluation and management of his renal dysfunction. REVIEW OF SYSTEMS: Positive for slurring speech. Currently, no chest pain or shortness of breath. No nausea. No vomiting. No diarrhea. No constipation. No productive cough. No fever or chills. No syncopal episode. No gross hematuria. No dysuria. No urinary frequency. MEDICATIONS: 1. Aspirin 325 mg daily. 2. Atorvastatin 40 mg at bedtime. 3. Clonidine TTS-3 patch q.week. 4. Clopidogrel 75 mg once a day. 5. Fenofibrate 145 mg daily. 6. Glyburide 2.5 mg q.a.m. 7. Heparin 5000 units subcu q.12. 8. Humalog sliding scale. 9. Humulin 70/30 40 units subcu b.i.d. 10. Hydralazine 10 mg IV q.6 p.r.n. 11. Hydralazine 75 mg p.o. t.i.d. 12. Levetiracetam 500 mg p.o. b.i.d. 13. Losartan 50 mg daily. 14. Metoprolol succinate 100 mg once a day. 15. Nifedipine 90 mg once a day. 16. P.r.n. potassium. PAST MEDICAL HISTORY: Chronic renal failure from hypertensive/diabetic nephropathy, baseline creatinine is about 2.4; long-standing hypertension; chronic anemia; type 2 diabetes mellitus; and history of complex cysts/adrenal adenoma. PAST SURGICAL HISTORY: No significant surgeries. SOCIAL HISTORY: The patient is , 4 children. 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 Education, some college courses. No history of smoking. Alcohol, occasional beer. No IV drug abuse. No blood transfusion. Lives in [place]. FAMILY HISTORY: No family history of ESRD. ALLERGIES: NONE. TRAUMA: None. IMMUNIZATION: Up-to-date. HOSPITALIZATIONS: Please see past medical history. PHYSICAL EXAMINATION: VITAL SIGNS: Blood pressure 148/88, heart rate 90, respiratory rate 16, temperature 98.5, and pulse ox 98%. GENERAL: Noted to be awake, alert, sitting comfortable, obese, not in distress. SKIN: Adequate turgor. HEENT: He has pinkish conjunctivae. Anicteric sclerae. No neck mass. No carotid bruits. No JVD. CHEST: No deformities. LUNGS: Clear breath sounds. No wheezing. No crackles. HEART: Normal sinus rhythm. No murmur. No gallops. No rubs. ABDOMEN: Globular, soft, and nontender. No masses. EXTREMITIES: No edema. No deformities. LABORATORY DATA: Laboratories of January 12, 2020; white count 6.3, hemoglobin 14. January 15, 2020; sodium 134, potassium 3.8, chloride 105, carbon dioxide 20, BUN 31, creatinine 2.75, glucose 306, and calcium 8.8. Urinalysis of January 12, 2020, shows a protein of 70. Plasma alcohol less than 10. ASSESSMENT AND PLAN: 1. Acute kidney injury on top of his chronic renal failure-consider hemodynamically mediated dysfunction. My bias is to decrease the losartan from 50 to 25 mg tablet once a day. 2. Chronic renal failure secondary to an underlying diabetic/hypertensive nephropathy. No indication for any dialytic intervention. His baseline creatinine is about 2.43. As previously mentioned, we will decrease losartan from 50 to 25 mg tablet once a day. 3. Hypertension, fairly controlled-the patient complaining of some dizziness with the current clonidine patch. My plan is to decrease clonidine patch to a TTS-2. 4. Overall agree with current management. Recheck basic metabolic profile in a.m. Job ID: [id number] [facility]
--- NOTE | 2020-01-15 10:33 | ULT ---
Bilateral renal ultrasound CLINICAL INDICATION: Follow-up evaluation complex renal cysts. Chronic renal failure/acute kidney insufficiency. COMPARISON: CT abdomen on 05/18/2016 FINDINGS: Right kidney: The right kidney measures 12.4 cm x 6 cm. There is a large anechoic structure seen midp ortion medial aspect right kidney measuring 4.8 cm demonstrating characteristics most compatible with a cyst. This was seen on prior CT examination. There is a hypoechoic exophytic lesion midportion right kidney which measures 2.3 cm which cannot be characterized as a simple cyst. A increased density lesion was seen in the inferior pole right kidney on prior CT exam in 2016 which measured 2.7 cm. No hydronephrosis or renal calculus is seen on the right. Left kidney: The left kidney measures 11.3 cm x 6.9 cm. There is a single small approximately 2.4 cm exophytic anechoic lesion midportion left kidney most compatible with a renal cyst. This was also present on prior CT examination. No additional renal lesion is seen on the left. There is no hydronep hrosis or renal calculus identified. Urinary bladder: Mostly decompressed and not well evaluated. Urinary bladder volume is 48.5 mL IMPRESSION: 1. Hypoechoic lesion inferior pole left kidney measuring 2.3 cm in maximal dimensions. There is a het erogeneous and increased density lesion at the inferior pole right kidney on prior CT exam in 2016 which measured 2.7 cm. This lesion has not enlarged compared to prior study. 2. Bilateral renal cysts.
[2020-01-15] MEDS ORDERED: cloNIDine 0.2mg/24 Hour PATCH TD SCH (11:00)
--- NOTE | 2020-01-15 13:26 | PDOC.HOSPP ---
- Subjective Encounter Date: 01/14/20 Encounter Time: 09:45 Subjective: pt up in bed had a focal seizure when i was talking with him - Objective Vital Signs & Weight: Vital Signs (12 hours) Temp Pulse Resp BP BP Pulse Ox 01/15/20 11:51 97.9 F 88 16 120/74 98 01/15/20 10:15 95 138/86 01/15/20 08:16 90 01/15/20 08:10 98 01/15/20 07:49 98.5 F 90 16 148/88 H 98 01/15/20 04:11 98.4 F 80 18 131/80 99 Weight Weight 253 lb 1.451 oz Most Recent Monitor Data Heart Rate from ECG 100 NIBP 156/102 NIBP BP-Mean 120 Respiration from ECG 24 SpO2 99 I&O: 01/14/20 01/15/20 01/16/20 06:59 06:59 06:59 Intake Total 150 1280 Output Total 825 1000 Balance -675 280 Result Diagrams: 01/12/20 04:20 01/15/20 04:08 Additional Labs: Accuchecks 01/15/20 01/15/20 01/15/20 10:49 06:34 00:39 POC Glucose 346 H 315 H 382 H 01/14/20 01/14/20 21:09 16:28 POC Glucose 168 H 265 H Hospitalist ROS - Review of Systems Respiratory: denies: cough, dry, shortness of breath, hemoptysis, SOB with excertion, pleuritic pain, sputum, wheezing, other Cardiovascular: denies: chest pain, palpitations, orthopnea, paroxysmal noc. dyspnea, edema, light headedness, other Gastrointestinal: denies: nausea, vomiting, abdominal pain, diarrhea, constipation, melena, hematochezia, other - Medication Medications: Active Medications Generic Name Dose Route Start Last Admin Trade Name Freq PRN Reason Stop Dose Admin Aspirin 325 mg 01/12/20 09:00 01/15/20 08:17 Ecotrin PO 325 mg DAILY GEOFF Administration Atorvastatin Calcium 40 mg 01/12/20 21:00 01/14/20 21:10 Lipitor PO 40 mg HS GEOFF Administration Clonidine 0.2 mg 01/15/20 11:00 01/15/20 10:40 Lassupxk-Ree-4 TD 0.2 mg Q7D GEOFF Administration Clopidogrel Bisulfate 75 mg 01/14/20 09:00 01/15/20 08:18 Plavix PO 75 mg DAILY GEOFF Administration Fenofibrate 145 mg 01/13/20 09:00 01/15/20 08:17 Tricor PO 145 mg DAILY GEOFF Administration Heparin Sodium (Porcine) 5,000 units 01/12/20 09:00 01/15/20 08:14 Heparin SC 5,000 units Q12HR GEOFF Administration Hydralazine HCl 10 mg 01/12/20 06:09 01/12/20 12:26 Apresoline SLOW IVP 10 mg Q4H PRN Administration Hypertension Hydralazine HCl 75 mg 01/14/20 15:00 01/15/20 08:16 Apresoline PO 75 mg TID GEOFF Administration Insulin Human Isoph/Insulin Regular 40 units 01/13/20 21:00 01/15/20 08:14 Humulin 70/30 SC 40 unit BID GEOFF Administration Insulin Human Lispro 0 units 01/12/20 20:37 01/12/20 21:35 Humalog SC 5 unit .BEDTIME SLIDING SC PRN Administration Bedtime Correctional Scale Insulin Human Lispro 0 units 01/13/20 13:23 01/15/20 11:07 Humalog SC 11 unit .AGGRESSIVE SLIDING PRN Administration AGGRESSIVE SLIDING SCALE Protocol Metoprolol Succinate 100 mg 01/13/20 09:00 01/15/20 08:17 Toprol Xl PO 100 mg DAILY GEOFF Administration Nifedipine 30 mg 01/13/20 21:00 01/14/20 21:10 Procardia Xl PO 30 mg HS GEOFF Administration Nifedipine 90 mg 01/13/20 09:00 01/15/20 08:16 Procardia Xl PO 90 mg DAILY GEOFF Administration - Exam Heart: negative: RRR, no murmur, no gallops, no rubs, normal peripheral pulses, irregular, diminshed peripheral pulses, murmur present, II/IV, III/IV Respiratory: negative: CTAB, no wheezes, no rales, no ronchi, normal chest expansion, no tachypnea, normal percussion, rales, rhonchi, tachypneic, wheezes Gastrointestinal: negative: soft, non-tender, non-distended, normal bowel sounds , no palpable masses, no hepatomegaly, no splenomegaly, no bruit, no guarding, no rigidity, tender to palpation, distended, diminished bowl sounds, voluntary guarding Extremities: negative: no cyanosis, no clubbing, no edema, 1+ LE edema, 2+ LE edema, clubbing Hosp A/P (1) Hyperglycemic hyperosmolar nonketotic coma Code(s): E11.01 - TYPE 2 DIABETES MELLITUS WITH HYPEROSMOLARITY WITH COMA Status: Acute (2) Slurred speech Code(s): R47.81 - SLURRED SPEECH Status: Acute (3) Hypertensive urgency Code(s): I16.0 - HYPERTENSIVE URGENCY Status: Acute (4) Seizure Code(s): R56.9 - UNSPECIFIED CONVULSIONS Status: Acute - Plan pt's hbg alc is 14 will start him on iv insulin for now. will advance his diet. MRi negative. slurred speech possible due to tia vs elevated blood sugar. will continue asa and statin for now. possible discharge him in am. 4/5 His insulin has been adjusted. He keeps having elevated bp and starts to have slurred speech. will add plavix. I did talk to him about diet/weight loss and sugar control. he is at a high risk of stroke and heart attack. it has been very difficult to manage his bp. He states that he cannot take mindoxil due to its side effects. His episodes of slurred speech is most likley due to his tia for elevated bp. If needed may send him to icu for cardene drip. / pt had focal seizure, he is awake and can follow commands but his left side of the mouth drooling and he is unable to talk. unclear etiology of his seizure. eeg positive for seizure. will review meds to see if drug interaction. His mri brain normal. His blood pressure is being managed. will also consult nephro for his worsening renal function.
[2020-01-15] MEDS ORDERED: levETIRAcetam 500 MG TAB PO SCH (14:00)
--- NOTE | 2020-01-15 16:01 | PDOC.HOSPP ---
- Subjective Encounter Date: 01/15/20 Encounter Time: 09:00 Subjective: pt up in bed still have focal seizures. - Objective Vital Signs & Weight: Vital Signs (12 hours) Temp Pulse Resp BP BP BP Pulse Ox 01/15/20 14:27 89 132/76 01/15/20 11:51 97.9 F 88 16 120/74 98 01/15/20 10:15 95 138/86 01/15/20 08:16 90 01/15/20 08:10 98 01/15/20 07:49 98.5 F 90 16 148/88 H 98 01/15/20 04:11 98.4 F 80 18 131/80 99 Weight Weight 253 lb 1.451 oz Most Recent Monitor Data Heart Rate from ECG 100 NIBP 156/102 NIBP BP-Mean 120 Respiration from ECG 24 SpO2 99 I&O: 01/14/20 01/15/20 01/16/20 06:59 06:59 06:59 Intake Total 150 1280 Output Total 825 1000 Balance -675 280 Result Diagrams: 01/12/20 04:20 01/15/20 04:08 Additional Labs: Accuchecks 01/15/20 01/15/20 01/15/20 10:49 06:34 00:39 POC Glucose 346 H 315 H 382 H 01/14/20 01/14/20 21:09 16:28 POC Glucose 168 H 265 H Hospitalist ROS - Review of Systems Respiratory: denies: cough, dry, shortness of breath, hemoptysis, SOB with excertion, pleuritic pain, sputum, wheezing, other Cardiovascular: denies: chest pain, palpitations, orthopnea, paroxysmal noc. dyspnea, edema, light headedness, other Neurological: reports: seizures - Medication Medications: Active Medications Generic Name Dose Route Start Last Admin Trade Name Freq PRN Reason Stop Dose Admin Aspirin 325 mg 01/12/20 09:00 01/15/20 08:17 Ecotrin PO 325 mg DAILY GEOFF Administration Atorvastatin Calcium 40 mg 01/12/20 21:00 01/14/20 21:10 Lipitor PO 40 mg HS GEOFF Administration Clonidine 0.2 mg 01/15/20 11:00 01/15/20 10:40 Oapkjcic-Aoi-3 TD 0.2 mg Q7D GEOFF Administration Clopidogrel Bisulfate 75 mg 01/14/20 09:00 01/15/20 08:18 Plavix PO 75 mg DAILY GEOFF Administration Fenofibrate 145 mg 01/13/20 09:00 01/15/20 08:17 Tricor PO 145 mg DAILY GEOFF Administration Heparin Sodium (Porcine) 5,000 units 01/12/20 09:00 01/15/20 08:14 Heparin SC 5,000 units Q12HR GEOFF Administration Hydralazine HCl 10 mg 01/12/20 06:09 01/12/20 12:26 Apresoline SLOW IVP 10 mg Q4H PRN Administration Hypertension Hydralazine HCl 75 mg 01/14/20 15:00 01/15/20 14:27 Apresoline PO 75 mg TID GEOFF Administration Insulin Human Isoph/Insulin Regular 40 units 01/13/20 21:00 01/15/20 08:14 Humulin 70/30 SC 40 unit BID GEOFF Administration Insulin Human Lispro 0 units 01/12/20 20:37 01/12/20 21:35 Humalog SC 5 unit .BEDTIME SLIDING SC PRN Administration Bedtime Correctional Scale Insulin Human Lispro 0 units 01/13/20 13:23 01/15/20 11:07 Humalog SC 11 unit .AGGRESSIVE SLIDING PRN Administration AGGRESSIVE SLIDING SCALE Protocol Levetiracetam 500 mg 01/15/20 14:00 01/15/20 14:27 Keppra PO 01/15/20 16:00 500 mg NOW GEOFF Administration Metoprolol Succinate 100 mg 01/13/20 09:00 01/15/20 08:17 Toprol Xl PO 100 mg DAILY GEOFF Administration Nifedipine 30 mg 01/13/20 21:00 01/14/20 21:10 Procardia Xl PO 30 mg HS GEOFF Administration Nifedipine 90 mg 01/13/20 09:00 01/15/20 08:16 Procardia Xl PO 90 mg DAILY GEOFF Administration - Exam Neck: negative: supple, symmetric, no JVD, no thyromegaly, no lymphadenopathy, no carotid bruit, JVD Heart: negative: RRR, no murmur, no gallops, no rubs, normal peripheral pulses, irregular, diminshed peripheral pulses, murmur present, II/IV, III/IV Respiratory: negative: CTAB, no wheezes, no rales, no ronchi, normal chest expansion, no tachypnea, normal percussion, rales, rhonchi, tachypneic, wheezes Gastrointestinal: negative: soft, non-tender, non-distended, normal bowel sounds , no palpable masses, no hepatomegaly, no splenomegaly, no bruit, no guarding, no rigidity, tender to palpation, distended, diminished bowl sounds, voluntary guarding Extremities: 1+ LE edema Hosp A/P (1) Hyperglycemic hyperosmolar nonketotic coma Code(s): E11.01 - TYPE 2 DIABETES MELLITUS WITH HYPEROSMOLARITY WITH COMA Status: Acute (2) Slurred speech Code(s): R47.81 - SLURRED SPEECH Status: Acute (3) Hypertensive urgency Code(s): I16.0 - HYPERTENSIVE URGENCY Status: Acute (4) Seizure Code(s): R56.9 - UNSPECIFIED CONVULSIONS Status: Acute - Plan pt's hbg alc is 14 will start him on iv insulin for now. will advance his diet. MRi negative. slurred speech possible due to tia vs elevated blood sugar. will continue asa and statin for now. possible discharge him in am. 01/12 His insulin has been adjusted. He keeps having elevated bp and starts to have slurred speech. will add plavix. I did talk to him about diet/weight loss and sugar control. he is at a high risk of stroke and heart attack. it has been very difficult to manage his bp. He states that he cannot take mindoxil due to its side effects. His episodes of slurred speech is most likley due to his tia for elevated bp. If needed may send him to icu for cardene drip. 01/13 pt had focal seizure, he is awake and can follow commands but his left side of the mouth drooling and he is unable to talk. unclear etiology of his seizure. eeg positive for seizure. will review meds to see if drug interaction. His mri brain normal. His blood pressure is being managed. will also consult nephro for his worsening renal function. 01/14 pt's clonidine dose has been reduced. No clear source for his seizure. bp has improved. renal ultrasound indicates
--- NOTE | 2020-01-15 16:49 | PRG ---
DATE OF SERVICE: 01/15/2020 CONSULTING PHYSICIAN: Hospitalist Service. Mr. Anders had at least 4 more episodes earlier today. He received an extra 500 mg of Keppra. He is going to have an increase in his daily dose to a 1000 mg twice a day. He seems to be tolerating the medication well. He denies that he ever loses consciousness with any of the events. They are primarily left-sided twitching on the face and neck. They have been self-limited. He had no other particular complaints today. Hopefully, things will settle down by tomorrow. Job ID: [id number]
[2020-01-15] MEDS: Atorvastatin Calcium 40 MG TAB PO SCH (21:33)
[2020-01-15] MEDS: NIFEdipine XL 30 MG TAB PO SCH (21:36)
[2020-01-16 04:24] LABS: #Eosinphils 0.2 thou/uL (0.0-0.7); #Lymphocytes 2.1 thou/uL (1.20-3.40); #Monocytes 0.7 thou/uL (0.11-0.59); #Neutrophils 3.4 thou/uL (1.40-6.50); %Basophils 0.6 % (0.0-1.0); %Eosinophils 2.9 % (0.0-10.0); %Lymphocytes 32.9 % (21.0-51.0); %Monocytes 10.6 % (0.0-10.0); Hemoglobin 12.8 g/dL (14.0-18.0); Mean Corpuscular HGB CONC 33.7 g/dL (32.0-36.0); Mean Corpuscular Hemoglobin 30.1 pg (27.0-31.0); Mean Corpuscular Volume 89.4 fL (78.0-98.0); Mean Platelet Volume 9.1 fL (7.4-10.4); Platelet Count 215 thou/uL (130-400); RBC Distribution Width 11.8 % (11.5-14.5); Red Blood Cell (RBC) Count 4.25 mill/uL (4.70-6.10); White Blood Cell (WBC) Count 6.4 thou/uL (4.8-10.8)
[2020-01-16 04:49] LABS: Anion Gap 13 mmol/L (10-20); BUN (Urea Nitrogen) 33 mg/dL (8.4-25.7); Calc. Creatinine Clearance 50 mL/min (70-130); Calcium 8.8 mg/dL (7.8-10.44); Carbon Dioxide 19 mmol/L (22-29); Chloride 108 mmol/L (98-107); Estimated GFR-MDRD 31; Glucose 87 mg/dL (70-105); Potassium 3.5 mmol/L (3.5-5.1); Sodium 136 mmol/L (136-145)
[2020-01-16] MEDS ORDERED: glyBURIDE 2.5 MG TAB PO SCH ×2 (08:00)
[2020-01-16] MEDS ORDERED: Losartan 25 MG TAB PO SCH (09:00)
--- NOTE | 2020-01-16 09:10 | PRG ---
DATE OF SERVICE: 01/16/2020 SUBJECTIVE: Mr. Anders is a 59-year-old black male, who was seen by the Renal Service for his acute kidney injury on top of his chronic renal failure. Adjustment of his medications have been made. The patient was also seen by the Neurology Service for focal seizures. Dr. Johnson is currently following up the patient. Adjustment of Keppra has been done. This morning, he is feeling better. He denies any chest pain or shortness of breath. OBJECTIVE: VITAL SIGNS: Blood pressure is 156/82, heart rate 68, respiratory rate 16, temperature 98.1, and pulse ox 98%. GENERAL: Noted to be awake, sitting comfortable, not in distress. SKIN: Adequate turgor. HEENT: Pinkish conjunctivae. Anicteric sclerae. NECK: No neck mass. No carotid bruits. No JVD. CHEST: No deformities. LUNGS: Clear breath sounds. HEART: Normal sinus rhythm. No murmurs, gallops, or rubs. ABDOMEN: Globular, soft, nontender. No masses. EXTREMITIES: No edema. No deformities. MEDICATIONS: Medications of January 16, 2020, was reviewed. LABORATORY DATA: Laboratories of January 16, 2020; sodium 136, potassium 3.5, chloride 108, carbon dioxide 19, BUN 33, creatinine 2.58, glucose 87, and calcium 8.8. ASSESSMENT AND PLAN: 1. Acute kidney injury on top of his chronic renal failure, superimposed prerenal azotemia, stabilizing renal function. Creatinine of 2.58, slightly improved from yesterday's value of 2.75. Continue current management. Continue low-dose losartan. Please note, I decreased losartan from 50 to 25 mg tablet once a day. Clonidine patch was also adjusted to a TTS two patch. 2. Seizure disorder, currently on Keppra. Neurology following. There is no indication for any dialytic intervention with this patient. Agree with current management. Recheck basic metabolic in a.m. Job ID: [id number]
[2020-01-16] MEDS: Fenofibrate Nanocrystallized 145 MG TAB PO SCH (09:58)
[2020-01-16] MEDS: Aspirin 325 mg Enteric Coated Tablet PO SCH (09:58)
[2020-01-16] MEDS: Clopidogrel Bisulfate 75 MG TAB PO SCH (09:58)
[2020-01-16] MEDS: hydrALAZINE 25 MG TAB PO SCH ×2 (09:59→14:21)
[2020-01-16] MEDS: Heparin 5,000 UNITS/ML VIAL SC SCH (09:59)
[2020-01-16] MEDS: levETIRAcetam 500 MG TAB PO SCH (09:59)
[2020-01-16] MEDS: NIFEdipine XL 90 MG TAB PO SCH (09:59)
[2020-01-16] MEDS: HumuLIN 70/30 (300 UNITS/3 ML VIAL) SC SCH (10:00)
[2020-01-16 11:20] VITALS: TEMP 98.4
[2020-01-16] MEDS: HumaLOG 300 UNITS/3 ML VIAL SC PRN (11:43)
--- NOTE | 2020-01-16 13:43 | EKG ---
Test Reason : Blood Pressure : / mmHG Vent. Rate : 103 BPM Atrial Rate : 103 BPM P-R Int : 218 ms QRS Dur : 096 ms QT Int : 344 ms P-R-T Axes : 093 -32 043 degrees QTc Int : 450 ms Sinus tachycardia with 1st degree A-V block Left axis deviation Moderate voltage criteria for LVH, may be normal variant Cannot rule out Septal infarct , age undetermined Abnormal ECG Confirmed by KATE GUTIERREZ ([id number]), industrial editor TONY REA ([id number]) on 01/16/2020 1:42:46 PM Referred By: Confirmed By:KATE GUTIERREZ
--- NOTE | 2020-01-16 14:20 | DIS ---
DATE OF ADMISSION: 01/12/2020 DATE OF DISCHARGE: 01/16/2020 DISCHARGE DIAGNOSES: As of the followin. Hyperglycemic hyperosmolar nonketotic coma. 2. Slurred speech. 3. Hypertensive urgency. 4. Newly diagnosed seizures. 5. Diabetes, uncontrolled. HOSPITAL COURSE: The patient is a 59-year-old male, who initially presented to the hospital with slurred speech. He did have a stroke rule out, which indicated an echo, a CTA, and an MRI brain. The MRI brain did not indicate any restrictive abnormalities. He did have a CT [place], which indicated again no significant stenosis that was noted. He had an echocardiogram, which indicated an EF of 55% to 60% with severe concentric left ventricular hypertrophy and also had an incidental finding of enlarged abdominal aorta, 3.9 to 4.0 cm. This was done through an ultrasound. He will follow up with CV Surgery and I have notified him about that. While he was in the hospital, he had very focal seizure-like activity which would last for maybe 30 to 40 seconds. At this time, he was completely mentating during this episodes. I did witness one of them. Neurology was consulted and EEG was done. His prolactin level was actually normal. The EEG indicated that it was abnormal. At this time, he was initially loaded with Keppra and at that time, he was started on 500 mg of Keppra twice a day. However, he continued to have these focal seizures. His Keppra was increased to 1000 twice a day and he had no more seizure-like activity over [address] for [employer]. I did tell him that he is unable to drive until he has been evaluated by Neurology. While he was in the hospital, his blood pressure was another issue that was out of control. He was initially put on clonidine 0.3 patch and there was some concern that not sure if that was causing him to have seizures. However, there was none listed as an adverse effect. His seizure etiology is really still unclear. I did review his medications, nothing that would cause him to have seizure-like activities. However, his clonidine patch was decreased from 0.3 to 0.2 and his medications were titrated. His blood pressure has been fairly controlled after multiple medications. Also, his hemoglobin A1c was greater than 14. I have educated him significantly on diet, exercise, weight loss, and also to take his medications and the fact that he will require insulin rather than his oral medications. I have asked him to follow up with his primary care doctor in regard to this. He was also seen by Nephrology given his worsening creatinine. His lisinopril dose was decreased. Renal bladder scan indicated a hypoechoic lesion to the inferior pole of the left kidney with 0.3 cm maximal dimension and there was heterogeneous and increased density lesion in the inferior pole, which was similar to one on the previous CT and the patient has been aware of this. He will follow up with Nephrology for this. PHYSICAL EXAMINATION: VITAL SIGNS: Temperature 98.4, pulse 92, respirations 16, oxygen saturation 99% on room air, and blood pressure 156/82. GENERAL: He is awake, alert, and oriented x3. He does not appear in distress. CARDIOVASCULAR: S1, S2 present. No murmurs, rubs, or gallops. He has been again asked to take a low-fat, low-sodium diet and diabetic diet, and also weight loss and exercise. HOME MEDICATIONS: 1. Metoprolol 100 mg daily. 2. Nifedipine 30 mg at night and 90 mg in the morning. 3. Januvia, I decreased it from 50 to 25 mg daily. 4. Keppra 1000 mg twice a day. 5. Hydralazine 75 mg t.i.d. 6. Clonidine patch 0.2 every 7 days from 0.3. 7. Losartan 25 mg daily. 8. He is going to be on Novolin 45 units twice a day. 9. Fenofibrate 145 daily. 10. Clopidogrel 75 mg daily. 11. Atorvastatin 40 mg daily. 12. Aspirin 81 mg daily. Actually, I will just put him only on the aspirin and not on clopidogrel since these findings that he had. Initially, the thought was that he was having TIAs; however, when I evaluated him and when I saw that this was more like a focal seizure, he was most certain that this was a seizure rather than a TIA. The extra addition of the Plavix was for secondary prevention since he was never on aspirin. So, I will continue just the aspirin and I will discontinue the Plavix for now. TIME SPENT: Greater than 35 minutes was spent on this discharge summary and educating the patient. Job ID: [id number]
[2020-01-16 14:22] VITALS: BP 134/76
== END 2020-01-16 14:30 | disposition home or self-care (01) | DRG 638 ==
LOC: ERS 04:01 → CCU 06:51 → 2SE 13:01
PROVIDERS: ADMIT Internal Medicine; ATTEND Internal Medicine
DX: E11.01 Type 2 diabetes mellitus with hyperosmolarity with coma (principal); N17.9 Acute kidney failure, unspecified; E11.65 Type 2 diabetes mellitus with hyperglycemia; R47.81 Slurred speech; I16.0 Hypertensive urgency; E78.00 Pure hypercholesterolemia, unspecified; N18.9 Chronic kidney disease, unspecified; R47.1 Dysarthria and anarthria; I12.9 Hypertensive chronic kidney disease with stage 1 through stage 4 chronic kidney disease, or unspecified chronic kidney disease; H53.8 Other visual disturbances; G40.909 Epilepsy, unspecified, not intractable, without status epilepticus; G51.0 Bell's palsy; E11.22 Type 2 diabetes mellitus with diabetic chronic kidney disease; E78.5 Hyperlipidemia, unspecified; Z79.4 Long term (current) use of insulin
CPT/HCPCS: 36415; 36416; 70450; 70496; 70498; 70551; 76706; 76770; 80048; 80053; 80061; 80307; 81003; 81015; 82010; 82553; 83036; 83930; 84146; 84443; 84484; 85025; 85610; 93005; 93306; 95816; 95819; 96361; 96365; 96375; J0360; J1644; J1815; J1953; J3480; J3490; Q9967

== ENCOUNTER 2020-02-19 09:13 | Outpatient (CLI) | payer BC ==
--- NOTE | 2020-02-19 13:01 | CT ---
CHEST CT WITHOUT CONTRAST ABDOMEN CT WITHOUT CONTRAST HISTORY: Evaluate for suprarenal abdominal aortic aneurysm. COMPARISON: 05/18/2016. FINDINGS: Chest CT: Limited evaluation of the mediastinum by the absence of IV contrast. No mass, lymphadenopathy or nuha tin. Normal heart size. No significant pericardial fluid. No evidence of mass or lymphadenopathy in the lower neck or axilla. Trachea and central bronchi are patent. Chronic changes in the lung parenchyma. No consolidation. No pleural effusion or pneumothorax. Nodules: No suspicious nodules in the left or right lung. Abdomen CT: Limited evaluation of the solid organs by the lack of IV contrast. Grossly no acute solid organ abnor mality. Stable cyst in the right hepatic lobe, Couinaud segment 6. Cyst measures 2.4 cm. Stable fullness of the left adrenal gland. No gastrohepatic, retrocrural or periportal lymphadenopathy. No mesenteric mass, lymphadenopathy, free air or free fluid. Anterior abdominal wall: Stable anterior abdominal wall hernia containing fat. Small segment of small bowel extends to the defect. No evidence of bowel incarceration. Kidneys: Stable renal parenchymal cysts. Sagittal hyperdensity in the lower pole of the right kidney may represent a complex or hemorrhagic cyst measuring 1.3 cm. Bilaterally no obstructive uropathy. Alimentary canal: No evidence of bowel obstruction in the visualized. Osseous structures: No acute abnormality. Aorta: The root of the aorta, ascending thoracic aorta, aortic arch, descending thoracic aorta have o verall normal course and caliber. There is mild prominence of the suprarenal abdominal aorta measuring 4.9 x 4.3 cm. The remainder the abdominal aorta, visualized aortic bifurcation and iliac ar teries do not demonstrate aneurysmal dilatation. In 2016, this region of prominence measured 3.7 x 3.9 cm. There is a interval growth. No periaortic fat stranding. IMPRESSION: 1. Interval growth of an incompletely evaluated suprarenal abdominal aortic aneurysm. No obvious jourdan aortic stranding. 2. Redemonstration of a right hepatic lobe cyst. 3. Probable complex or hemorrhagic cyst in the right kidney. Transcribed Date/Time: 02/19/2020 1:11 PM
== END 2020-02-19 09:14 | disposition home or self-care (01) ==
LOC: SCSCT 09:13
PROVIDERS: ATTEND Thoracic Surgery (Cardiothoracic Vascular Surgery)
DX: I71.4 Abdominal aortic aneurysm, without rupture (principal); K76.89 Other specified diseases of liver
CPT/HCPCS: 71250; 74150

== ENCOUNTER 2020-12-09 13:57 | Outpatient (CLI) | payer BC ==
--- NOTE | 2020-12-09 15:07 | CT ---
CT OF CHEST AND ABDOMEN PERFORMED WITHOUT CONTRAST ENHANCEMENT: 12/09/20 COMPARISON: 02/19/20 study. HISTORY: Suprarenal aortic aneurysm. The lungs are clear of any infiltrative process. Some linear interstitial changes in the bases which could represent some scarring. The ascending thoracic aorta is normal in caliber with a dimension of approximately 4 cm. the aorta is tortuous. The descending thoracic aorta at mid thoracic level measur es 3.7 cm and there is aneurysmal dilatation at the level of the esophageal hiatus where an AP measur ement of 4.6 cm is obtained. This is a fairly similar measurement to the prior examination. I obtaine d a measurement about 4.5 cm on the prior exam. Below this level, the aorta tapers at the level of th e renal arteries. It measures approximately 2.6 cm. the infrarenal aorta is tortuous but not aneurysm al. There is no significant mediastinal adenopathy demonstrated on this noncontrast study. CT OF ABDOMEN PERFORMED WITHOUT CONTRAST ENHANCEMENT: Hypodensity within the liver appears to represent a cyst the spleen, pancreas, and gallbladder region s appear unremarkable. Right and left adrenal glands again show slightly nodular appearance to the left adrenal, stable. The re is a lobular contour to the right kidney in the lower pole region. This is shown to represent an a andrew of a cyst on the previous 05/18/16 study but the lobular contour in the mid to lower pole region al jacoby the anterior cortex on axial image 77 may just represent lobular contour but cannot exclude this representing a mass in the 3 cm range. I would recommend a CT using renal mass protocol for evaluatio n of this. Larger upper pole parapelvic cysts is similar to the previous exam. Vague hypodensities in the left kidney are probably small cysts. No significant periaortic or mesenteric adenopathy. IMPRESSION: 1. Suprarenal dilatation of the proximal abdominal aorta at the level of the esophageal hiatus w ith AP measurement of approximately 4.6 cm. This tapers to a normal caliber in the infrarenal portion . 2. Lobulated contour to the right kidney particularly an area in the anterior cortex. This appea rs more prominent than it has on previous exams. I cannot exclude this as a solid mass and would abbie mmend a CT using renal mass protocol for assessment. Other areas in both kidneys are felt to most lik amarilis represent cysts and are more similar in appearance to previous studies. Code T POS: ANNABELLA
== END 2020-12-09 13:58 | disposition home or self-care (01) ==
LOC: BICCT 13:57
PROVIDERS: ATTEND Thoracic Surgery (Cardiothoracic Vascular Surgery)
DX: I71.4 Abdominal aortic aneurysm, without rupture (principal); I77.811 Abdominal aortic ectasia; R93.421 Abnormal radiologic findings on diagnostic imaging of right kidney
CPT/HCPCS: 71250; 74150

== ENCOUNTER 2021-01-06 14:04 | Outpatient (CLI) | payer BC | END 2021-01-06 14:05 | disposition home or self-care (01) | LOC: BICULT 14:04 | PROVIDERS: ATTEND Internal Medicine Nephrology | DX: N28.1 Cyst of kidney, acquired (principal); N28.81 Hypertrophy of kidney | CPT/HCPCS: 76770 ==

== ENCOUNTER 2021-05-29 10:00 | Inpatient (IN) | payer BC ==
[~2021-05-29 10:00] MED LIST: cloNIDine 0.3mg/24 Hour PATCH TD SCH
[2021-05-29] MEDS ORDERED: Dextrose 5% in Water 1,000 ML IV PRN (10:50)
[2021-05-29] MEDS ORDERED: Dextrose 50% Abboject 50 ML SYRINGE SLOW IVP PRN (10:50)
[2021-05-29] MEDS ORDERED: HumaLOG 300 UNITS/3 ML VIAL SC PRN (10:50)
[2021-05-29] MEDS ORDERED: hydrALAZINE 20 MG/ML VIAL SLOW IVP PRN (10:50)
[2021-05-29] MEDS ORDERED: Labetalol HCl 100 MG/20 ML VIAL SLOW IVP PRN (10:50)
[2021-05-29] MEDS ORDERED: Furosemide 40 MG/4 ML VIAL SLOW IVP SCH (11:15)
[2021-05-29 11:48] LABS: Anion Gap 13 mmol/L (10-20); BUN (Urea Nitrogen) 65 mg/dL (8.4-25.7); Calc. Creatinine Clearance 26 mL/min (70-130); Calcium 9.4 mg/dL (7.8-10.44); Carbon Dioxide 21 mmol/L (22-29); Chloride 107 mmol/L (98-107); Glucose 145 mg/dL (70-105); Potassium 5.7 mmol/L (3.5-5.1); Sodium 135 mmol/L (136-145)
[2021-05-29] MEDS ORDERED: Non-Formulary Item 1 EACH (Hydralazine Hcl [Hydralazine Hcl] 50 MG Tablet) PO SCH (15:00)
[2021-05-29] MEDS: Furosemide 40 MG/4 ML VIAL SLOW IVP SCH (15:20)
[2021-05-29] MEDS: hydrALAZINE 25 MG TAB PO SCH ×2 (15:20→20:18)
[2021-05-29] MEDS ORDERED: Lidocaine 1% w/Epinephrine 1:100K 20 ML VIAL FS SCH (17:45)
[2021-05-29] MEDS: NIFEdipine XL 30 MG TAB PO SCH (20:18)
[2021-05-29] MEDS: Heparin 5,000 UNITS/ML VIAL SC SCH (20:19)
[2021-05-30 04:50] LABS: #Eosinphils 0.2 thou/uL (0.0-0.7); #Lymphocytes 1.7 thou/uL (1.20-3.40); #Monocytes 0.8 thou/uL (0.11-0.59); #Neutrophils 3.4 thou/uL (1.40-6.50); %Basophils 0.6 % (0.0-1.0); %Eosinophils 2.7 % (0.0-10.0); %Lymphocytes 27.8 % (21.0-51.0); %Monocytes 12.3 % (0.0-10.0); %Neutrophils 56.6 % (42.0-75.0); Hemoglobin 9.7 g/dL (14.0-18.0); Mean Corpuscular HGB CONC 32.2 g/dL (32.0-36.0); Mean Corpuscular Hemoglobin 29.1 pg (27.0-31.0); Mean Corpuscular Volume 90.2 fL (78.0-98.0); Mean Platelet Volume 7.6 fL (7.4-10.4); Platelet Count 259 thou/uL (130-400); RBC Distribution Width 13.7 % (11.5-14.5); Red Blood Cell (RBC) Count 3.33 mill/uL (4.70-6.10); White Blood Cell (WBC) Count 6.1 thou/uL (4.8-10.8)
[2021-05-30 05:09] LABS: Anion Gap 14 mmol/L (10-20); BUN (Urea Nitrogen) 61 mg/dL (8.4-25.7); Calc. Creatinine Clearance 25 mL/min (70-130); Calcium 9.3 mg/dL (7.8-10.44); Carbon Dioxide 22 mmol/L (22-29); Chloride 109 mmol/L (98-107); Glucose 140 mg/dL (70-105); Potassium 5.4 mmol/L (3.5-5.1); Sodium 140 mmol/L (136-145)
[2021-05-30] MEDS: Furosemide 40 MG/4 ML VIAL SLOW IVP SCH ×2 (05:13→14:04)
[2021-05-30] MEDS: Heparin 5,000 UNITS/ML VIAL SC SCH ×2 (09:07→23:25)
[2021-05-30] MEDS: hydrALAZINE 25 MG TAB PO SCH ×3 (09:08→23:25)
[2021-05-30] MEDS: Famotidine 20 MG TAB PO SCH (09:10)
[2021-05-30] MEDS: NIFEdipine XL 90 MG TAB PO SCH (09:11)
[2021-05-30] MEDS ORDERED: Heparin 10,000 UNITS/ 10 ML VIAL ONE (09:13)
[2021-05-30 11:05] LABS: HBSAg Index 0.19 S/CO (0-0.99); Hep B Surf Ag Non-Reactive S/CO (NonReactive)
[2021-05-30 12:15] LABS: HBSAB Concentration Less than 8.00 mIU/mL; HBSAg Index 0.22 S/CO (0-0.99); Hep B Core Total Ab Non-Reactive (NonReactive); Hep B Core Total Index 0.07 S/CO (0-0.79); Hep B Surf AB Non-Reactive (NonReactive); Hep B Surf Ag Non-Reactive S/CO (NonReactive); Hep C IgG Ab Non-Reactive (NonReactive); Hep C Index 0.08 S/CO (0-0.79)
[2021-05-30] MEDS ORDERED: Lidocaine 1% (PF) 30 ML VIAL ONE (12:42)
[2021-05-30] MEDS ORDERED: Lidocaine 1% (PF) 30 ML VIAL SC SCH (13:15)
[2021-05-30] MEDS: Tuberculin PPD 0.1 ML VIAL I-DERMAL SCH (14:03)
[2021-05-30] MEDS ORDERED: Heparin 5,000 UNITS/ML VIAL FS SCH (16:00)
[2021-05-30] MEDS: NIFEdipine XL 30 MG TAB PO SCH (23:24)
[2021-05-31 05:08] LABS: #Basophils 0.1 thou/uL (0.0-0.2); #Eosinphils 0.1 thou/uL (0.0-0.7); #Lymphocytes 1.5 thou/uL (1.20-3.40); #Monocytes 0.7 thou/uL (0.11-0.59); #Neutrophils 5.4 thou/uL (1.40-6.50); %Basophils 0.7 % (0.0-1.0); %Eosinophils 0.9 % (0.0-10.0); %Lymphocytes 19.1 % (21.0-51.0); %Monocytes 9.2 % (0.0-10.0); %Neutrophils 70.1 % (42.0-75.0); Hemoglobin 8.8 g/dL (14.0-18.0); Mean Corpuscular Hemoglobin 30.5 pg (27.0-31.0); Mean Corpuscular Volume 89.4 fL (78.0-98.0); Mean Platelet Volume 7.6 fL (7.4-10.4); Platelet Count 229 thou/uL (130-400); RBC Distribution Width 13.6 % (11.5-14.5); Red Blood Cell (RBC) Count 2.88 mill/uL (4.70-6.10); White Blood Cell (WBC) Count 7.7 thou/uL (4.8-10.8)
[2021-05-31 05:33] LABS: Anion Gap 14 mmol/L (10-20); BUN (Urea Nitrogen) 60 mg/dL (8.4-25.7); Calc. Creatinine Clearance 23 mL/min (70-130); Calcium 8.9 mg/dL (7.8-10.44); Carbon Dioxide 23 mmol/L (22-29); Chloride 107 mmol/L (98-107); Glucose 166 mg/dL (70-105); Iron 32 ug/dL (65-175); Iron Binding Capacity, Total 226 mcg/dL (261-462); Phosphorus 5.4 mg/dL (2.3-4.7); Potassium 4.8 mmol/L (3.5-5.1); Sodium 139 mmol/L (136-145)
[2021-05-31] MEDS: Furosemide 40 MG/4 ML VIAL SLOW IVP SCH (06:21)
[2021-05-31] MEDS ORDERED: Heparin 10,000 UNITS/ 10 ML VIAL ONE (09:14)
[2021-05-31] MEDS ORDERED: Iron, Sodium Ferric Gluconate 125 MG in Sodium Chloride 0.9% 100 ML IVPB SCH (11:00)
[2021-05-31] MEDS: NIFEdipine XL 90 MG TAB PO SCH (11:07)
[2021-05-31] MEDS: hydrALAZINE 25 MG TAB PO SCH ×3 (11:07→21:16)
[2021-05-31] MEDS: Famotidine 20 MG TAB PO SCH (11:07)
[2021-05-31] MEDS: Heparin 5,000 UNITS/ML VIAL SC SCH ×2 (11:10→21:18)
[2021-05-31] MEDS: HumaLOG 300 UNITS/3 ML VIAL SC PRN (11:16)
[2021-05-31] MEDS: Tuberculin PPD 0.1 ML VIAL I-DERMAL SCH (11:18)
[2021-05-31] MEDS: Sevelamer Carbonate 800 MG TAB PO SCH ×2 (12:15→17:58)
[2021-05-31] MEDS: NIFEdipine XL 30 MG TAB PO SCH (21:17)
[2021-06-01 04:59] LABS: #Eosinphils 0.2 thou/uL (0.0-0.7); #Lymphocytes 2.2 thou/uL (1.20-3.40); #Monocytes 0.8 thou/uL (0.11-0.59); #Neutrophils 3.7 thou/uL (1.40-6.50); %Basophils 0.1 % (0.0-1.0); %Eosinophils 2.7 % (0.0-10.0); %Lymphocytes 31.8 % (21.0-51.0); %Monocytes 11.2 % (0.0-10.0); %Neutrophils 54.3 % (42.0-75.0); Hemoglobin 8.4 g/dL (14.0-18.0); Mean Corpuscular HGB CONC 32.2 g/dL (32.0-36.0); Mean Corpuscular Hemoglobin 28.9 pg (27.0-31.0); Mean Corpuscular Volume 89.8 fL (78.0-98.0); Mean Platelet Volume 7.8 fL (7.4-10.4); Platelet Count 233 thou/uL (130-400); RBC Distribution Width 13.9 % (11.5-14.5); Red Blood Cell (RBC) Count 2.91 mill/uL (4.70-6.10); White Blood Cell (WBC) Count 6.9 thou/uL (4.8-10.8)
[2021-06-01 05:20] LABS: Anion Gap 14 mmol/L (10-20); BUN (Urea Nitrogen) 46 mg/dL (8.4-25.7); Calc. Creatinine Clearance 24 mL/min (70-130); Calcium 8.9 mg/dL (7.8-10.44); Carbon Dioxide 27 mmol/L (22-29); Chloride 102 mmol/L (98-107); Glucose 128 mg/dL (70-105); Potassium 4.5 mmol/L (3.5-5.1); Sodium 138 mmol/L (136-145)
[2021-06-01] MEDS: Sevelamer Carbonate 800 MG TAB PO SCH ×3 (08:00→17:10)
[2021-06-01] MEDS: hydrALAZINE 25 MG TAB PO SCH ×3 (09:00→21:20)
[2021-06-01] MEDS: Tuberculin PPD 0.1 ML VIAL I-DERMAL SCH (12:22)
[2021-06-01] MEDS: Famotidine 20 MG TAB PO SCH (12:57)
[2021-06-01] MEDS: Calcitriol 0.25 MCG CAP PO SCH (12:57)
[2021-06-01] MEDS: Heparin 5,000 UNITS/ML VIAL SC SCH ×2 (12:57→21:20)
[2021-06-01] MEDS: NIFEdipine XL 90 MG TAB PO SCH (14:09)
[2021-06-01] MEDS ORDERED: Heparin 10,000 UNITS/ 10 ML VIAL ONE (14:19)
[2021-06-01] MEDS: HumaLOG 300 UNITS/3 ML VIAL SC PRN (17:09)
[2021-06-01] MEDS: NIFEdipine XL 30 MG TAB PO SCH (21:20)
[2021-06-02 05:31] LABS: #Basophils 0.1 thou/uL (0.0-0.2); #Eosinphils 0.2 thou/uL (0.0-0.7); #Lymphocytes 2.5 thou/uL (1.20-3.40); #Monocytes 0.9 thou/uL (0.11-0.59); #Neutrophils 4.2 thou/uL (1.40-6.50); %Basophils 0.9 % (0.0-1.0); %Eosinophils 2.4 % (0.0-10.0); %Lymphocytes 31.8 % (21.0-51.0); %Monocytes 11.7 % (0.0-10.0); %Neutrophils 53.2 % (42.0-75.0); Hemoglobin 8.5 g/dL (14.0-18.0); Mean Corpuscular HGB CONC 34.1 g/dL (32.0-36.0); Mean Corpuscular Hemoglobin 30.5 pg (27.0-31.0); Mean Corpuscular Volume 89.4 fL (78.0-98.0); Mean Platelet Volume 7.8 fL (7.4-10.4); Platelet Count 216 thou/uL (130-400); RBC Distribution Width 13.7 % (11.5-14.5); White Blood Cell (WBC) Count 7.9 thou/uL (4.8-10.8)
[2021-06-02 05:57] LABS: Anion Gap 15 mmol/L (10-20); BUN (Urea Nitrogen) 43 mg/dL (8.4-25.7); Calc. Creatinine Clearance 22 mL/min (70-130); Calcium 8.9 mg/dL (7.8-10.44); Carbon Dioxide 27 mmol/L (22-29); Chloride 99 mmol/L (98-107); Glucose 141 mg/dL (70-105); Potassium 4.1 mmol/L (3.5-5.1); Sodium 137 mmol/L (136-145)
[2021-06-02] MEDS: Tuberculin PPD 0.1 ML VIAL I-DERMAL SCH (07:14)
[2021-06-02] MEDS: Sevelamer Carbonate 800 MG TAB PO SCH ×3 (08:58→17:59)
[2021-06-02] MEDS ORDERED: CEFAZOLIN 2 GM in Premix Bag 1 BAG IVPB SCH (10:30)
[2021-06-02] MEDS: hydrALAZINE 25 MG TAB PO SCH ×3 (11:10→21:27)
[2021-06-02 12:20] LABS: SARS-CoV-2 NAA Rapid Test Not Detected (NotDetected)
[2021-06-02] MEDS ORDERED: Fentanyl 100 MCG/2 ML VIAL ONE ×2 (13:06→13:10)
[2021-06-02] MEDS ORDERED: Bupivacaine 0.25% HCL 30 ML VIAL ONE (13:38)
[2021-06-02] MEDS ORDERED: Sodium Chloride 0.9% 30 ML ONE (13:38)
[2021-06-02] MEDS ORDERED: Protamine Sulfate 50 MG/5 ML VIAL ONE (13:38)
[2021-06-02] MEDS ORDERED: Heparin 10,000 UNITS/ 10 ML VIAL ONE (13:38)
[2021-06-02] MEDS ORDERED: Lidocaine 1% w/Epinephrine 1:100K 20 ML VIAL ONE (13:38)
[2021-06-02] MEDS ORDERED: Heparin 5,000 UNITS/ML VIAL ONE (13:38)
[2021-06-02] MEDS ORDERED: Propofol 500 MG/50 ML VIAL ONE (14:04)
[2021-06-02] MEDS ORDERED: Bupivacaine HCl 0.5%/Epinephrine 1:200,000/PF 30 ml Vial ONE (14:05)
[2021-06-02] MEDS ORDERED: PROPOFOL 200 MG/20 ML VIAL ONE (14:05)
[2021-06-02] MEDS ORDERED: Lidocaine 1% PF 5 ML VIAL ONE (14:05)
[2021-06-02] MEDS ORDERED: Dexmedetomidine 200 MCG/2 ML VIAL ONE (14:28)
[2021-06-02] MEDS ORDERED: Propofol 1,000 MG/100 ML VIAL IV ONE (15:45)
[2021-06-02] MEDS ORDERED: Promethazine HCl 25 MG/ML VIAL IM PRN (16:51)
[2021-06-02] MEDS ORDERED: Promethazine HCl 25 MG/ML VIAL IVPB PRN (16:51)
[2021-06-02] MEDS ORDERED: Ondansetron HCl/PF 4 MG/2 ML Vial IVP PRN (16:51)
[2021-06-02] MEDS: Heparin 5,000 UNITS/ML VIAL SC SCH ×2 (17:58→21:40)
[2021-06-02] MEDS: NIFEdipine XL 90 MG TAB PO SCH (17:59)
[2021-06-02] MEDS: Famotidine 20 MG TAB PO SCH (17:59)
[2021-06-02] MEDS: Calcitriol 0.25 MCG CAP PO SCH (17:59)
[2021-06-02] MEDS: NIFEdipine XL 30 MG TAB PO SCH (21:27)
[2021-06-03] MEDS ORDERED: cloNIDine 0.3mg/24 Hour PATCH TD SCH (09:00)
[2021-06-03] MEDS: Sevelamer Carbonate 800 MG TAB PO SCH ×3 (10:10→18:08)
[2021-06-03] MEDS: Ferrous Sulfate 325 MG TAB PO SCH ×2 (10:10→18:08)
[2021-06-03] MEDS: Heparin 5,000 UNITS/ML VIAL SC SCH ×2 (10:11→20:41)
[2021-06-03] MEDS: hydrALAZINE 25 MG TAB PO SCH ×3 (10:11→20:40)
[2021-06-03] MEDS ORDERED: Heparin 10,000 UNITS/ 10 ML VIAL ONE (13:51)
[2021-06-03] MEDS: Famotidine 20 MG TAB PO SCH (14:45)
[2021-06-03] MEDS: Calcitriol 0.25 MCG CAP PO SCH (14:45)
[2021-06-03] MEDS: NIFEdipine XL 90 MG TAB PO SCH (14:46)
[2021-06-03] MEDS: Acetaminophen 325 MG TAB PO PRN (20:40)
[2021-06-03] MEDS: NIFEdipine XL 30 MG TAB PO SCH (20:40)
[2021-06-04] MEDS: Acetaminophen 325 MG TAB PO PRN ×2 (04:34→14:24)
[2021-06-04 04:37] VITALS: BMI 38.5
[2021-06-04] MEDS: HumaLOG 300 UNITS/3 ML VIAL SC PRN (05:30)
[2021-06-04] MEDS: NIFEdipine XL 90 MG TAB PO SCH (08:47)
[2021-06-04] MEDS: Famotidine 20 MG TAB PO SCH (08:47)
[2021-06-04] MEDS: Ferrous Sulfate 325 MG TAB PO SCH (08:47)
[2021-06-04] MEDS: hydrALAZINE 25 MG TAB PO SCH ×2 (08:47→14:21)
[2021-06-04] MEDS: Calcitriol 0.25 MCG CAP PO SCH (08:48)
[2021-06-04] MEDS: Heparin 5,000 UNITS/ML VIAL SC SCH (08:49)
[2021-06-04] MEDS: Sevelamer Carbonate 800 MG TAB PO SCH ×2 (09:33→12:02)
[2021-06-04 13:28] VITALS: BP 165/105; TEMP 98.1
[2021-06-04 13:28] LABS: #Eosinphils 0.1 thou/uL (0.0-0.7); #Lymphocytes 1.4 thou/uL (1.20-3.40); #Monocytes 1.4 thou/uL (0.11-0.59); #Neutrophils 7.6 thou/uL (1.40-6.50); %Basophils 0.4 % (0.0-1.0); %Eosinophils 1.2 % (0.0-10.0); %Lymphocytes 13.4 % (21.0-51.0); %Monocytes 12.9 % (0.0-10.0); %Neutrophils 72.1 % (42.0-75.0); Hemoglobin 8.8 g/dL (14.0-18.0); Mean Corpuscular HGB CONC 35.1 g/dL (32.0-36.0); Mean Corpuscular Hemoglobin 31.5 pg (27.0-31.0); Mean Corpuscular Volume 89.9 fL (78.0-98.0); Mean Platelet Volume 7.4 fL (7.4-10.4); Platelet Count 200 thou/uL (130-400); RBC Distribution Width 13.5 % (11.5-14.5); Red Blood Cell (RBC) Count 2.79 mill/uL (4.70-6.10); White Blood Cell (WBC) Count 10.5 thou/uL (4.8-10.8)
[2021-06-04 13:47] LABS: Anion Gap 18 mmol/L (10-20); BUN (Urea Nitrogen) 47 mg/dL (8.4-25.7); Calc. Creatinine Clearance 17 mL/min (70-130); Calcium 9.2 mg/dL (7.8-10.44); Carbon Dioxide 28 mmol/L (22-29); Chloride 93 mmol/L (98-107); Glucose 181 mg/dL (70-105); Potassium 4.1 mmol/L (3.5-5.1); Sodium 135 mmol/L (136-145)
== END 2021-06-04 15:43 | disposition home or self-care (01) | DRG 673 ==
LOC: 2SE 10:00 → 3SE 06-03 12:41
PROVIDERS: ADMIT Internal Medicine; ATTEND Family Medicine
PROC: 5A1D70Z Performance of Urinary Filtration, Intermittent, Less than 6 Hours Per Day (ICD-10-PCS; principal; 2021-05-30)
PROC: 06HY33Z Insertion of Infusion Device into Lower Vein, Percutaneous Approach (ICD-10-PCS; 2021-05-30)
PROC: 031B0ZF Bypass Right Radial Artery to Lower Arm Vein, Open Approach (ICD-10-PCS; 2021-06-02)
PROC: 0JH60XZ Insertion of Tunneled Vascular Access Device into Chest Subcutaneous Tissue and Fascia, Open Approach (ICD-10-PCS; 2021-06-02)
PROC: 02HV33Z Insertion of Infusion Device into Superior Vena Cava, Percutaneous Approach (ICD-10-PCS; 2021-06-02)
PROC: B5181ZA Fluoroscopy of Superior Vena Cava using Low Osmolar Contrast, Guidance (ICD-10-PCS; 2021-06-02)
PROC: B548ZZA Ultrasonography of Superior Vena Cava, Guidance (ICD-10-PCS; 2021-06-02)
DX: I12.0 Hypertensive chronic kidney disease with stage 5 chronic kidney disease or end stage renal disease (principal); Z20.822 Contact with and (suspected) exposure to COVID-19; J81.0 Acute pulmonary edema; J96.01 Acute respiratory failure with hypoxia; N18.6 End stage renal disease; I97.638 Postprocedural hematoma of a circulatory system organ or structure following other circulatory system procedure; N25.81 Secondary hyperparathyroidism of renal origin; E87.70 Fluid overload, unspecified; E11.22 Type 2 diabetes mellitus with diabetic chronic kidney disease; E87.5 Hyperkalemia; D63.1 Anemia in chronic kidney disease; Y84.8 Other medical procedures as the cause of abnormal reaction of the patient, or of later complication, without mention of misadventure at the time of the procedure; I08.3 Combined rheumatic disorders of mitral, aortic and tricuspid valves; M10.9 Gout, unspecified; N28.1 Cyst of kidney, acquired; E83.39 Other disorders of phosphorus metabolism; E66.9 Obesity, unspecified; Z68.38 Body mass index [BMI] 38.0-38.9, adult; Z99.2 Dependence on renal dialysis; Z83.3 Family history of diabetes mellitus; Z82.49 Family history of ischemic heart disease and other diseases of the circulatory system; Z79.899 Other long term (current) drug therapy; Z79.84 Long term (current) use of oral hypoglycemic drugs
CPT/HCPCS: 36415; 36416; 71045; 76770; 80048; 82728; 83540; 83550; 83880; 83970; 84100; 85025; 86580; 86704; 86706; 86803; 87340; 90935; 93306; 93970; C1752; G0257; J0690; J1642; J1644; J1815; J1940; J2704; J2720; J2916; J3010; J3490; S0020; U0002; U0005

== ENCOUNTER 2021-08-13 07:39 | Outpatient (CLI) | payer BC | END 2021-08-13 07:40 | disposition home or self-care (01) | LOC: BICCT 07:39 | PROVIDERS: ATTEND Internal Medicine Nephrology | DX: R93.5 Abnormal findings on diagnostic imaging of other abdominal regions, including retroperitoneum (principal); N18.6 End stage renal disease; N28.89 Other specified disorders of kidney and ureter; I71.4 Abdominal aortic aneurysm, without rupture; K42.9 Umbilical hernia without obstruction or gangrene | CPT/HCPCS: 74178 ==

== ENCOUNTER 2022-02-01 10:08 | Outpatient (CLI) | payer BC | END 2022-02-01 10:09 | disposition home or self-care (01) | LOC: LABBT 10:08 | PROVIDERS: ATTEND Urology | DX: Z01.818 Encounter for other preprocedural examination (principal); E11.22 Type 2 diabetes mellitus with diabetic chronic kidney disease; I12.0 Hypertensive chronic kidney disease with stage 5 chronic kidney disease or end stage renal disease; N18.6 End stage renal disease; G40.909 Epilepsy, unspecified, not intractable, without status epilepticus; N28.89 Other specified disorders of kidney and ureter; N28.1 Cyst of kidney, acquired; E11.65 Type 2 diabetes mellitus with hyperglycemia; I10 Essential (primary) hypertension; I71.4 Abdominal aortic aneurysm, without rupture; E66.01 Morbid (severe) obesity due to excess calories; Z99.2 Dependence on renal dialysis; Z20.822 Contact with and (suspected) exposure to COVID-19 | CPT/HCPCS: 71046; 80048; 81001; 85027; 85610; 85730; 86850; 86900; 86901; 87086; U0003; U0005 ==

== ENCOUNTER 2022-02-01 10:30 | Inpatient (IN) | payer BC ==
[2022-02-01 10:54] LABS: Bilirubin Neg (Negative); Blood, Urine 25 (Negative); Clarity Clear (Clear); Glucose, Urine (Dipstick) 100 mg/dL (Negative); Ketone, Urine Negative (Negative); Leukocyte Negative (Negative); Nitrite Negative (Negative); Protein, Urine (Dipstick) 100 mg/dl (Neg-Trace); Urobilinogen Normal mg/dL (Less than 2)
[2022-02-01 11:09] LABS: Bacteria/HPF None Seen HPF (None Seen); RBC/HPF 0-3 HPF (0-3); Squamous Epithelial None Seen HPF (0-3); WBC/HPF 0-3 HPF (0-3)
[2022-02-01 11:42] LABS: Mean Corpuscular HGB CONC 33.2 g/dL (32.0-36.0); Mean Corpuscular Hemoglobin 31.6 pg (27.0-33.0); Mean Corpuscular Volume 95.1 fl (81.2-95.1); Mean Platelet Volume 10.4 fl (7.4-10.4); Platelet Count 247 10x3/uL (150-450); RBC Distribution Width 14.6 % (11.5-14.5); Red Blood Cell (RBC) Count 3.48 10x6/uL (4.32-5.72)
[2022-02-01 11:47] LABS: Anion Gap 22 mmol/L (10-20); BUN (Urea Nitrogen) 60 mg/dL (8.4-25.7); Calc. Creatinine Clearance 0 mL/min (70-130); Calcium 9.5 mg/dL (7.8-10.44); Carbon Dioxide 24 mmol/L (23-31); Chloride 98 mmol/L (98-107); Glucose 205 mg/dL (80-115); Potassium 4.8 mmol/L (3.5-5.1); Sodium 139 mmol/L (136-145)
[2022-02-01 11:48] LABS: PTT 26.5 sec (22.0-33.0); Prothrombin Time 10.8 sec (9.5-12.1)
[2022-02-01 23:31] LABS: SARS-CoV-2 PCR by NAA Not Detected (NotDetected)
[2022-02-04] MEDS ORDERED: Fentanyl 250 MCG/5 ML VIAL ONE (06:13)
[2022-02-04] MEDS ORDERED: Lidocaine 1% MPF 2 ML VIAL ONE (06:44)
[2022-02-04] MEDS ORDERED: Midazolam HCl 2 mg/2 ml Vial ONE (06:55)
[2022-02-04] MEDS ORDERED: Lidocaine 1% PF 5 ML VIAL ONE ×2 (06:56→07:45)
[2022-02-04] MEDS ORDERED: ceFAZolin (BATCH) 2 GM/100 ML BAG ONE (07:30)
[2022-02-04] MEDS ORDERED: Ketorolac Tromethamine 30 MG/ML VIAL ONE (07:45)
[2022-02-04] MEDS ORDERED: PROPOFOL 200 MG/20 ML VIAL ONE (07:45)
[2022-02-04] MEDS ORDERED: Ondansetron PF 4 MG/2 ML Vial ONE (07:45)
[2022-02-04] MEDS ORDERED: Rocuronium Bromide 10 MG/ML (10ML VIAL) ONE (07:45)
[2022-02-04] MEDS ORDERED: Glycopyrrolate 0.2 MG/ML 5 ML SYRINGE ONE (07:45)
[2022-02-04] MEDS ORDERED: Lidocaine 1.5% w/Epi 1:200K 30 ML VIAL (Epid Use) ONE (07:45)
[2022-02-04] MEDS ORDERED: PHENYLEPHRINE-NS 100 MCG/ML 10 ML SYRINGE ONE (07:45)
[2022-02-04] MEDS ORDERED: EPINEPHrine 1 MG/ML AMP ONE (09:07)
[2022-02-04] MEDS ORDERED: Bupivacaine 0.25% 10 ML VIAL ONE (09:07)
[2022-02-04] MEDS ORDERED: HYDROmorphone 2 MG/ML VIAL ONE (10:04)
[2022-02-04] MEDS ORDERED: SUGAMMADEX SODIUM 200 MG/2 ML VIAL ONE (10:04)
[2022-02-04] MEDS ORDERED: Dextrose 5% in Water 1,000 ML IV PRN (10:30)
[2022-02-04] MEDS ORDERED: Mag-Al 1200 mg/1200 mg/30 ML UDCUP PO PRN (10:30)
[2022-02-04] MEDS ORDERED: Dextrose 50% Abboject 50 ML SYRINGE SLOW IVP PRN (10:30)
[2022-02-04] MEDS ORDERED: Sodium Chloride 0.9% 1,000 ML IV SCH (10:30)
[2022-02-04] MEDS ORDERED: HumaLOG 300 UNITS/3 ML VIAL SC PRN (10:30)
[2022-02-04] MEDS ORDERED: Bisacodyl 10 MG SUPP PR PRN (10:30)
[2022-02-04] MEDS ORDERED: Promethazine HCl 25 MG/ML VIAL IVPB PRN (10:36)
[2022-02-04] MEDS ORDERED: HYDROmorphone 2 MG/ML VIAL SLOW IVP PRN (10:36)
[2022-02-04] MEDS ORDERED: Ondansetron HCl/PF 4 MG/2 ML Vial IVP PRN (10:36)
[2022-02-04] MEDS ORDERED: Promethazine HCl 25 MG/ML VIAL IM PRN ×2 (10:36→11:00)
[2022-02-04 10:55] LABS: Hemoglobin 9.5 g/dL (14.0-18.0); Mean Corpuscular Hemoglobin 33.4 pg (27.0-31.0); Mean Corpuscular Volume 98.3 fL (78.0-98.0); Mean Platelet Volume 7.4 fL (7.4-10.4); Platelet Count 210 thou/uL (130-400); Red Blood Cell (RBC) Count 2.83 mill/uL (4.70-6.10); White Blood Cell (WBC) Count 11.3 thou/uL (4.8-10.8)
[2022-02-04] MEDS ORDERED: Zolpidem Tartrate 5 MG TAB PO PRN (11:00)
[2022-02-04] MEDS ORDERED: diphenhydrAMINE 50 MG/ML VIAL IM PRN (11:00)
[2022-02-04] MEDS ORDERED: HYDROcodone/Acetaminophen 5/325 mg Tablet PO PRN (11:00)
[2022-02-04] MEDS ORDERED: Promethazine HCl 25 MG SUPP PR PRN (11:00)
[2022-02-04] MEDS ORDERED: traMADol HCl 50 MG TAB PO PRN ×4 (11:00→11:41)
[2022-02-04] MEDS ORDERED: diphenhydrAMINE 25 MG CAP PO PRN (11:00)
[2022-02-04] MEDS ORDERED: Bupivacaine 0.25% 10 ML VIAL EPIDURAL PRN (11:00)
[2022-02-04] MEDS ORDERED: diphenhydrAMINE 50 MG/ML VIAL IVP PRN (11:00)
[2022-02-04] MEDS ORDERED: Hydrocerin (Eucerin) Cream 120 gm Jar TOP PRN (11:00)
[2022-02-04] MEDS ORDERED: Naloxone HCl 0.4 mg/ml Vial IVP PRN (11:00)
[2022-02-04] MEDS ORDERED: Naloxone HCl 0.4 mg/ml Vial IV PRN (11:00)
[2022-02-04] MEDS ORDERED: Acetaminophen 325 MG TAB PO PRN (11:02)
[2022-02-04 11:19] LABS: Anion Gap 18 mmol/L (10-20); BUN (Urea Nitrogen) 63 mg/dL (8.4-25.7); Calc. Creatinine Clearance 13 mL/min (70-130); Calcium 8.3 mg/dL (7.8-10.44); Carbon Dioxide 21 mmol/L (23-31); Chloride 105 mmol/L (98-107); Glucose 243 mg/dL (80-115); Potassium 6.2 mmol/L (3.5-5.1); Sodium 138 mmol/L (136-145)
[2022-02-04 13:13] VITALS: BMI 37.7
[2022-02-04] MEDS ORDERED: EPOETIN ALFA-EPBX (ESRD) 10,000 UNIT/ML VIAL SC SCH (18:00)
[2022-02-04] MEDS: Heparin 5,000 UNITS/ML VIAL SC SCH ×2 (18:27→21:33)
[2022-02-04] MEDS: glyBURIDE 5 MG TAB PO SCH (18:27)
[2022-02-04] MEDS: HYDROcodone/Acetaminophen 5/325 mg Tablet PO PRN (20:13)
[2022-02-04] MEDS: Docusate 100 MG CAP PO SCH (20:14)
[2022-02-04] MEDS: Insulin Glargine 30 UNITS/0.3 ML VIAL SC SCH (20:14)
[2022-02-04] MEDS: fentaNYL Citrate/PF 500 MCG, Bupivacaine 0.75% 10 ML in Sodium Chloride 0.9% 80 ML EPIDURAL SCH (21:32)
[2022-02-05 05:04] LABS: #Eosinphils 0.1 thou/uL (0.0-0.7); #Lymphocytes 1.4 thou/uL (1.20-3.40); #Monocytes 0.9 thou/uL (0.11-0.59); #Neutrophils 4.5 thou/uL (1.40-6.50); %Basophils 0.4 % (0.0-1.0); %Eosinophils 1.4 % (0.0-10.0); %Lymphocytes 20.2 % (21.0-51.0); %Monocytes 12.6 % (0.0-10.0); %Neutrophils 65.4 % (42.0-75.0); Hemoglobin 9.9 g/dL (14.0-18.0); Mean Corpuscular HGB CONC 33.7 g/dL (32.0-36.0); Mean Corpuscular Hemoglobin 33.5 pg (27.0-31.0); Mean Corpuscular Volume 99.2 fL (78.0-98.0); Mean Platelet Volume 7.6 fL (7.4-10.4); Platelet Count 167 thou/uL (130-400); Red Blood Cell (RBC) Count 2.96 mill/uL (4.70-6.10); White Blood Cell (WBC) Count 6.9 thou/uL (4.8-10.8)
[2022-02-05 05:25] LABS: Anion Gap 17 mmol/L (10-20); BUN (Urea Nitrogen) 38 mg/dL (8.4-25.7); Calc. Creatinine Clearance 17 mL/min (70-130); Calcium 8.4 mg/dL (7.8-10.44); Carbon Dioxide 25 mmol/L (23-31); Chloride 97 mmol/L (98-107); Glucose 155 mg/dL (80-115); Potassium 5.3 mmol/L (3.5-5.1); Sodium 134 mmol/L (136-145)
[2022-02-05] MEDS: Heparin 5,000 UNITS/ML VIAL SC SCH ×2 (05:48→15:12)
[2022-02-05] MEDS: HYDROcodone/Acetaminophen 5/325 mg Tablet PO PRN ×2 (05:57→20:15)
[2022-02-05] MEDS ORDERED: CEFAZOLIN 1 GM in Sodium Chloride 0.9% 100 ML IVPB SCH (08:00)
[2022-02-05] MEDS: Alogliptin 6.25 MG TAB PO SCH (08:39)
[2022-02-05] MEDS: NIFEdipine XL 90 MG TAB PO SCH (08:39)
[2022-02-05] MEDS: Allopurinol 100 MG TAB PO SCH (08:40)
[2022-02-05] MEDS: Docusate 100 MG CAP PO SCH ×2 (08:40→20:10)
[2022-02-05] MEDS: fentaNYL Citrate/PF 500 MCG, Bupivacaine 0.75% 10 ML in Sodium Chloride 0.9% 80 ML EPIDURAL SCH ×2 (08:41→20:10)
[2022-02-05] MEDS: glyBURIDE 5 MG TAB PO SCH (17:28)
[2022-02-05] MEDS: Insulin Glargine 30 UNITS/0.3 ML VIAL SC SCH (20:10)
[2022-02-06] MEDS: Heparin 5,000 UNITS/ML VIAL SC SCH ×4 (00:04→22:18)
[2022-02-06] MEDS: HYDROcodone/Acetaminophen 5/325 mg Tablet PO PRN (00:17)
[2022-02-06] MEDS: Ondansetron PF 4 MG/2 ML Vial IVP PRN ×2 (00:17→10:57)
[2022-02-06] MEDS: hydrALAZINE 20 MG/ML VIAL SLOW IVP PRN ×2 (01:01→10:57)
[2022-02-06 05:26] LABS: #Lymphocytes 0.8 thou/uL (1.20-3.40); #Monocytes 0.7 thou/uL (0.11-0.59); #Neutrophils 8.8 thou/uL (1.40-6.50); %Basophils 0.1 % (0.0-1.0); %Eosinophils 0.3 % (0.0-10.0); %Lymphocytes 7.4 % (21.0-51.0); %Monocytes 6.4 % (0.0-10.0); %Neutrophils 85.9 % (42.0-75.0); Hemoglobin 10.3 g/dL (14.0-18.0); Mean Corpuscular Hemoglobin 33.6 pg (27.0-31.0); Mean Corpuscular Volume 98.7 fL (78.0-98.0); Mean Platelet Volume 7.6 fL (7.4-10.4); Platelet Count 163 thou/uL (130-400); RBC Distribution Width 13.7 % (11.5-14.5); Red Blood Cell (RBC) Count 3.06 mill/uL (4.70-6.10); White Blood Cell (WBC) Count 10.2 thou/uL (4.8-10.8)
[2022-02-06 05:48] LABS: Anion Gap 22 mmol/L (10-20); BUN (Urea Nitrogen) 55 mg/dL (8.4-25.7); Calc. Creatinine Clearance 12 mL/min (70-130); Calcium 8.9 mg/dL (7.8-10.44); Carbon Dioxide 24 mmol/L (23-31); Chloride 93 mmol/L (98-107); Glucose 215 mg/dL (80-115); Potassium 5.8 mmol/L (3.5-5.1); Sodium 133 mmol/L (136-145)
[2022-02-06] MEDS: fentaNYL Citrate/PF 500 MCG, Bupivacaine 0.75% 10 ML in Sodium Chloride 0.9% 80 ML EPIDURAL SCH ×2 (07:58→20:14)
[2022-02-06] MEDS: Sevelamer Carbonate 800 MG TAB PO SCH ×3 (08:56→17:56)
[2022-02-06] MEDS: Docusate 100 MG CAP PO SCH ×2 (08:56→20:15)
[2022-02-06] MEDS: Alogliptin 6.25 MG TAB PO SCH (08:56)
[2022-02-06] MEDS: Allopurinol 100 MG TAB PO SCH (08:56)
[2022-02-06] MEDS: NIFEdipine XL 90 MG TAB PO SCH (08:56)
[2022-02-06] MEDS: glyBURIDE 5 MG TAB PO SCH (17:56)
[2022-02-06] MEDS: Insulin Glargine 30 UNITS/0.3 ML VIAL SC SCH (20:15)
[2022-02-07 05:35] LABS: #Basophils 0.1 thou/uL (0.0-0.2); #Eosinphils 0.2 thou/uL (0.0-0.7); #Lymphocytes 1.5 thou/uL (1.20-3.40); %Basophils 0.7 % (0.0-1.0); %Eosinophils 2.8 % (0.0-10.0); %Lymphocytes 19.1 % (21.0-51.0); %Monocytes 13.3 % (0.0-10.0); %Neutrophils 64.2 % (42.0-75.0); Mean Corpuscular Hemoglobin 33.7 pg (27.0-31.0); Mean Corpuscular Volume 99.3 fL (78.0-98.0); Mean Platelet Volume 7.6 fL (7.4-10.4); Platelet Count 177 thou/uL (130-400); RBC Distribution Width 13.9 % (11.5-14.5); Red Blood Cell (RBC) Count 2.96 mill/uL (4.70-6.10); White Blood Cell (WBC) Count 7.8 thou/uL (4.8-10.8)
[2022-02-07] MEDS: Heparin 5,000 UNITS/ML VIAL SC SCH ×3 (05:36→23:03)
[2022-02-07 05:58] LABS: Anion Gap 19 mmol/L (10-20); BUN (Urea Nitrogen) 36 mg/dL (8.4-25.7); Calc. Creatinine Clearance 15 mL/min (70-130); Calcium 9.1 mg/dL (7.8-10.44); Carbon Dioxide 28 mmol/L (23-31); Chloride 92 mmol/L (98-107); Glucose 147 mg/dL (80-115); Potassium 4.3 mmol/L (3.5-5.1); Sodium 135 mmol/L (136-145)
[2022-02-07] MEDS: fentaNYL Citrate/PF 500 MCG, Bupivacaine 0.75% 10 ML in Sodium Chloride 0.9% 80 ML EPIDURAL SCH ×2 (07:42→20:03)
[2022-02-07] MEDS: NIFEdipine XL 90 MG TAB PO SCH (08:24)
[2022-02-07] MEDS: Alogliptin 6.25 MG TAB PO SCH (08:24)
[2022-02-07] MEDS: Sevelamer Carbonate 800 MG TAB PO SCH ×3 (08:24→17:50)
[2022-02-07] MEDS: Docusate 100 MG CAP PO SCH ×2 (08:25→20:03)
[2022-02-07] MEDS: Allopurinol 100 MG TAB PO SCH (08:25)
[2022-02-07] MEDS: glyBURIDE 5 MG TAB PO SCH (17:50)
[2022-02-07] MEDS: cloNIDine 0.1 MG TAB PO SCH (20:03)
[2022-02-07] MEDS: Insulin Glargine 30 UNITS/0.3 ML VIAL SC SCH (20:04)
[2022-02-08 05:41] LABS: #Eosinphils 0.3 thou/uL (0.0-0.7); #Lymphocytes 2.2 thou/uL (1.20-3.40); #Neutrophils 4.1 thou/uL (1.40-6.50); %Basophils 0.5 % (0.0-1.0); %Eosinophils 3.9 % (0.0-10.0); %Lymphocytes 28.6 % (21.0-51.0); %Monocytes 12.8 % (0.0-10.0); %Neutrophils 54.3 % (42.0-75.0); Hemoglobin 9.8 g/dL (14.0-18.0); Mean Corpuscular HGB CONC 34.7 g/dL (32.0-36.0); Mean Corpuscular Hemoglobin 34.3 pg (27.0-31.0); Mean Platelet Volume 7.5 fL (7.4-10.4); Platelet Count 221 thou/uL (130-400); RBC Distribution Width 13.5 % (11.5-14.5); Red Blood Cell (RBC) Count 2.87 mill/uL (4.70-6.10); White Blood Cell (WBC) Count 7.6 thou/uL (4.8-10.8)
[2022-02-08 06:08] LABS: Anion Gap 19 mmol/L (10-20); BUN (Urea Nitrogen) 55 mg/dL (8.4-25.7); Calc. Creatinine Clearance 11 mL/min (70-130); Carbon Dioxide 27 mmol/L (23-31); Chloride 91 mmol/L (98-107); Glucose 97 mg/dL (80-115); Potassium 4.2 mmol/L (3.5-5.1); Sodium 133 mmol/L (136-145)
[2022-02-08] MEDS: Heparin 5,000 UNITS/ML VIAL SC SCH ×3 (06:11→21:07)
[2022-02-08] MEDS: Alogliptin 6.25 MG TAB PO SCH (09:13)
[2022-02-08] MEDS: cloNIDine 0.1 MG TAB PO SCH ×2 (09:13→21:07)
[2022-02-08] MEDS: Sevelamer Carbonate 800 MG TAB PO SCH ×3 (09:13→18:00)
[2022-02-08] MEDS: NIFEdipine XL 90 MG TAB PO SCH (09:13)
[2022-02-08] MEDS: Docusate 100 MG CAP PO SCH ×2 (09:13→21:06)
[2022-02-08] MEDS: fentaNYL Citrate/PF 500 MCG, Bupivacaine 0.75% 10 ML in Sodium Chloride 0.9% 80 ML EPIDURAL SCH (09:14)
[2022-02-08] MEDS: Allopurinol 100 MG TAB PO SCH (09:14)
[2022-02-08] MEDS: glyBURIDE 5 MG TAB PO SCH (18:00)
[2022-02-08] MEDS: Insulin Glargine 30 UNITS/0.3 ML VIAL SC SCH (21:07)
[2022-02-09] MEDS: Heparin 5,000 UNITS/ML VIAL SC SCH ×3 (05:08→21:26)
[2022-02-09 05:54] LABS: #Eosinphils 0.2 thou/uL (0.0-0.7); #Lymphocytes 1.7 thou/uL (1.20-3.40); #Monocytes 0.8 thou/uL (0.11-0.59); %Basophils 0.7 % (0.0-1.0); %Eosinophils 3.2 % (0.0-10.0); %Lymphocytes 25.4 % (21.0-51.0); %Monocytes 12.2 % (0.0-10.0); %Neutrophils 58.5 % (42.0-75.0); Mean Corpuscular HGB CONC 34.7 g/dL (32.0-36.0); Mean Corpuscular Hemoglobin 33.7 pg (27.0-31.0); Mean Corpuscular Volume 97.2 fL (78.0-98.0); Platelet Count 239 thou/uL (130-400); RBC Distribution Width 13.6 % (11.5-14.5); Red Blood Cell (RBC) Count 2.68 mill/uL (4.70-6.10); White Blood Cell (WBC) Count 6.8 thou/uL (4.8-10.8)
[2022-02-09 06:17] LABS: Anion Gap 21 mmol/L (10-20); BUN (Urea Nitrogen) 75 mg/dL (8.4-25.7); Calc. Creatinine Clearance 10 mL/min (70-130); Calcium 8.6 mg/dL (7.8-10.44); Carbon Dioxide 24 mmol/L (23-31); Chloride 92 mmol/L (98-107); Glucose 125 mg/dL (80-115); Potassium 4.4 mmol/L (3.5-5.1); Sodium 133 mmol/L (136-145)
[2022-02-09] MEDS: fentaNYL Citrate/PF 500 MCG, Bupivacaine 0.75% 10 ML in Sodium Chloride 0.9% 80 ML EPIDURAL SCH (07:05)
[2022-02-09] MEDS: Docusate 100 MG CAP PO SCH ×2 (08:52→21:26)
[2022-02-09] MEDS: Sevelamer Carbonate 800 MG TAB PO SCH ×3 (08:52→17:37)
[2022-02-09] MEDS: Alogliptin 6.25 MG TAB PO SCH (08:53)
[2022-02-09] MEDS: NIFEdipine XL 90 MG TAB PO SCH (09:00)
[2022-02-09] MEDS: cloNIDine 0.1 MG TAB PO SCH ×2 (09:00→21:26)
[2022-02-09] MEDS: Allopurinol 100 MG TAB PO SCH (09:00)
[2022-02-09] MEDS: glyBURIDE 5 MG TAB PO SCH (17:38)
[2022-02-09] MEDS: Insulin Glargine 30 UNITS/0.3 ML VIAL SC SCH (21:26)
[2022-02-10] MEDS: HYDROcodone/Acetaminophen 5/325 mg Tablet PO PRN (02:43)
[2022-02-10] MEDS: Heparin 5,000 UNITS/ML VIAL SC SCH (05:40)
[2022-02-10 07:51] VITALS: BP 149/87; TEMP 98.6
[2022-02-10] MEDS: Sevelamer Carbonate 800 MG TAB PO SCH ×2 (08:54→12:25)
[2022-02-10] MEDS: Alogliptin 6.25 MG TAB PO SCH (08:55)
[2022-02-10] MEDS: Allopurinol 100 MG TAB PO SCH (08:55)
[2022-02-10] MEDS: NIFEdipine XL 90 MG TAB PO SCH (08:55)
[2022-02-10] MEDS: cloNIDine 0.1 MG TAB PO SCH (08:55)
[2022-02-10] MEDS: Docusate 100 MG CAP PO SCH (08:55)
== END 2022-02-10 14:00 | disposition home or self-care (01) | DRG 656 ==
LOC: SURG A 02-04 06:08 → EDSTATUS 02-04 10:30 → SURG A 02-04 12:58
PROVIDERS: ADMIT Urology; ATTEND Urology
PROC: 5A1D70Z Performance of Urinary Filtration, Intermittent, Less than 6 Hours Per Day (ICD-10-PCS; 2022-02-04)
PROC: 0TT00ZZ Resection of Right Kidney, Open Approach (ICD-10-PCS; principal; 2022-02-10)
DX: C64.1 Malignant neoplasm of right kidney, except renal pelvis (principal); N18.6 End stage renal disease; N28.89 Other specified disorders of kidney and ureter; Z20.822 Contact with and (suspected) exposure to COVID-19; K76.89 Other specified diseases of liver; E87.5 Hyperkalemia; E11.22 Type 2 diabetes mellitus with diabetic chronic kidney disease; I10 Essential (primary) hypertension; D63.1 Anemia in chronic kidney disease; E83.39 Other disorders of phosphorus metabolism; Z79.899 Other long term (current) drug therapy; Z79.4 Long term (current) use of insulin; Z99.2 Dependence on renal dialysis
CPT/HCPCS: 36415; 36416; 71045; 80048; 81001; 85025; 85027; 85610; 85730; 86850; 86900; 86901; 87086; 88307; 90935; A4649; C1713; C1889; G0257; J0171; J0360; J0690; J1170; J1644; J1815; J1885; J2001; J2250; J2405; J2704; J3010; J3490; Q5105; S0020; U0003; U0005

== ENCOUNTER 2023-05-13 08:27 | Outpatient (CLI) | payer MEDICARE, BC | END 2023-05-13 08:28 | disposition home or self-care (01) | LOC: CT 08:27 | PROVIDERS: ATTEND Urology | DX: C64.9 Malignant neoplasm of unspecified kidney, except renal pelvis (principal); N28.1 Cyst of kidney, acquired; N28.9 Disorder of kidney and ureter, unspecified; I71.10 Thoracic aortic aneurysm, ruptured, unspecified; K76.9 Liver disease, unspecified; Z90.5 Acquired absence of kidney | CPT/HCPCS: 71046; 74160; 74170; 74176; 82565 ==

== ENCOUNTER 2023-06-09 18:07 | Emergency (ER) | payer BC, MEDICARE ==
[~2023-06-09 18:07] MED LIST changes: +Iopamidol-370 76% 500 ML MDV (1 ML CHARGE) ONE; -cloNIDine 0.3mg/24 Hour PATCH TD SCH
[2023-06-09 18:48] LABS: #Eosinphils 0.1 thou/uL (0.0-0.7); #Neutrophils 6.1 thou/uL (1.40-6.50); %Basophils 0.4 % (0.0-1.0); %Eosinophils 1.1 % (0.0-10.0); %Lymphocytes 20.6 % (21.0-51.0); %Monocytes 10.8 % (0.0-10.0); %Neutrophils 66.7 % (42.0-75.0); Hematocrit 33.9 % (42.0-52.0); Hemoglobin 11.4 g/dL (14.0-18.0); Mean Corpuscular HGB CONC 33.6 g/dL (32.0-36.0); Mean Corpuscular Hemoglobin 31.7 pg (27.0-31.0); Mean Corpuscular Volume 94.2 fl (78.0-98.0); Mean Platelet Volume 10.1 fL (7.4-10.4); Platelet Count 222 10x3/uL (130-400); RBC Distribution Width 15.1 % (11.5-14.5); White Blood Cell (WBC) Count 9.1 10x3/uL (4.8-10.8)
[2023-06-09 19:12] LABS: ALT (SGPT) 19 U/L (8-55); AST (SGOT) 15 U/L (5-34); Albumin 4.2 g/dL (3.4-4.8); Alkaline Phosphatase 52 U/L (40-110); Anion Gap 17 mmol/L (10-20); BUN (Urea Nitrogen) 38 mg/dL (8.4-25.7); Bilirubin, Total 0.4 mg/dL (0.2-1.2); Calc. Creatinine Clearance 0 mL/min (70-130); Calcium 9.5 mg/dL (7.8-10.44); Carbon Dioxide 27 mmol/L (23-31); Chloride 96 mmol/L (98-107); Estimated GFR 6; Globulin 3.5 g/dL (2.4-3.5); Glucose 161 mg/dL (80-115); Lipase 132 U/L (8-78); Potassium 4.4 mmol/L (3.5-5.1); Protein, Total 7.7 g/dL (5.8-8.1); Sodium 136 mmol/L (136-145)
[2023-06-09] MEDS ORDERED: Ondansetron PF 4 MG/2 ML Vial ONE (19:15)
[2023-06-09] MEDS ORDERED: Famotidine/PF 20 mg/2ml Vial ONE (19:15)
[2023-06-09 19:16] LABS: Troponin I 0.091 ng/mL (< 0.028)
[2023-06-09 21:14] LABS: SARS-CoV-2 NAA Rapid Test Not Detected (NotDetected)
[2023-06-09 21:39] LABS: Troponin I 0.076 ng/mL (< 0.028)
== END 2023-06-09 22:43 | disposition home or self-care (01) ==
LOC: ERS 18:07
DX: R11.2 Nausea with vomiting, unspecified (principal); I12.0 Hypertensive chronic kidney disease with stage 5 chronic kidney disease or end stage renal disease; N18.6 End stage renal disease; E11.22 Type 2 diabetes mellitus with diabetic chronic kidney disease; I71.23 Aneurysm of the descending thoracic aorta, without rupture; Z99.2 Dependence on renal dialysis; Z20.822 Contact with and (suspected) exposure to COVID-19
CPT/HCPCS: 0240U; 71045; 74177; 80053; 83690; 84484 ×2; 85025; 86850; 86900; 86901; 93005; 96374; 96375; 99284; 36415; J2405; S0028

== ENCOUNTER 2023-06-27 08:13 | Inpatient (IN) | payer BC, MEDICARE ==
[2023-06-27] MEDS ORDERED: Heparin 10,000 UNITS/ 10 ML VIAL ONE (08:45)
[2023-06-27] MEDS ORDERED: Iopamidol-370 76% 500 ML MDV (1 ML CHARGE) ONE (09:12)
[2023-06-27 09:32] LABS: #Basophils 0.1 thou/uL (0.0-0.2); #Eosinphils 0.2 thou/uL (0.0-0.7); #Neutrophils 7.6 thou/uL (1.40-6.50); %Basophils 0.5 % (0.0-1.0); %Eosinophils 1.6 % (0.0-10.0); %Lymphocytes 15.3 % (21.0-51.0); %Monocytes 9.6 % (0.0-10.0); %Neutrophils 72.6 % (42.0-75.0); Hematocrit 33.5 % (42.0-52.0); Hemoglobin 10.7 g/dL (14.0-18.0); Mean Corpuscular HGB CONC 31.9 g/dL (32.0-36.0); Mean Corpuscular Hemoglobin 31.5 pg (27.0-31.0); Mean Corpuscular Volume 98.5 fl (78.0-98.0); Mean Platelet Volume 9.8 fL (7.4-10.4); Platelet Count 235 10x3/uL (130-400); RBC Distribution Width 15.3 % (11.5-14.5); White Blood Cell (WBC) Count 10.5 10x3/uL (4.8-10.8)
[2023-06-27 09:46] LABS: ALT (SGPT) 19 U/L (8-55); AST (SGOT) 13 U/L (5-34); Albumin 4.2 g/dL (3.4-4.8); Alkaline Phosphatase 46 U/L (40-110); Anion Gap 22 mmol/L (10-20); BUN (Urea Nitrogen) 56 mg/dL (8.4-25.7); Bilirubin, Total 0.4 mg/dL (0.2-1.2); Calc. Creatinine Clearance 0 mL/min (70-130); Calcium 9.3 mg/dL (7.8-10.44); Carbon Dioxide 24 mmol/L (23-31); Chloride 98 mmol/L (98-107); Estimated GFR 4; Globulin 3.2 g/dL (2.4-3.5); Glucose 149 mg/dL (80-115); Potassium 5.6 mmol/L (3.5-5.1); Protein, Total 7.4 g/dL (5.8-8.1); Sodium 138 mmol/L (136-145)
[2023-06-27 09:52] LABS: Troponin I 0.062 ng/mL (< 0.028)
[2023-06-27] MEDS ORDERED: Aspirin Chewable 81 MG TAB ONE (10:58)
[2023-06-27] MEDS ORDERED: Cefepime 2 GM VIAL ONE (10:58)
[2023-06-27 11:06] LABS: Prothrombin Time 13.6 sec (12.0-14.7)
[2023-06-27 11:07] LABS: PTT 36.6 sec (22.9-36.1)
[2023-06-27 11:08] LABS: D-Dimer Test 0.49 *mcg/mL (0.27-0.43)
[2023-06-27 11:19] LABS: Magnesium 2.8 mg/dL (1.6-2.6)
[2023-06-27] MEDS ORDERED: Vancomycin 1 GM/200 ML (FROZEN) BAG ONE (12:01)
[2023-06-27] MEDS ORDERED: HumaLOG 300 UNITS/3 ML VIAL SC PRN ×2 (12:46)
[2023-06-27] MEDS ORDERED: Glucagon 1 MG/ML KIT IM PRN (12:46)
[2023-06-27] MEDS ORDERED: Dextrose 5% in Water 1,000 ML IV PRN (12:46)
[2023-06-27] MEDS ORDERED: Acetaminophen 325 MG TAB PO PRN (12:46)
[2023-06-27] MEDS ORDERED: VANCOMYCIN IVPB PRN (12:46)
[2023-06-27] MEDS ORDERED: Dextrose 50% Abboject 50 ML SYRINGE SLOW IVP PRN (12:46)
[2023-06-27 12:50] LABS: SARS-CoV-2 NAA Rapid Test Not Detected (NotDetected)
[2023-06-27] MEDS ORDERED: LOKELMA 10 GM PACKET PO SCH (13:00)
[2023-06-27] MEDS ORDERED: Metoclopramide HCl 10 MG/2 ML VIAL IVP PRN (13:02)
[2023-06-27] MEDS ORDERED: LevoFLOXacin 750 mg/D5W 150 ml Premix Bag ONE (13:23)
[2023-06-27 13:35] LABS: Troponin I 0.064 ng/mL (< 0.028)
[2023-06-27] MEDS: Heparin 5,000 UNITS/ML VIAL SC SCH ×2 (16:02→22:24)
[2023-06-27 16:19] VITALS: BMI 36.9
[2023-06-27] MEDS ORDERED: Vancomycin 1 GM in Premix Bag 1 BAG IVPB SCH (17:00)
[2023-06-27 17:48] LABS: Troponin I 0.051 ng/mL (< 0.028)
[2023-06-27 17:57] LABS: Hep B Core Total Ab Non-Reactive (NonReactive); Hep B Core Total Index 0.22 S/CO (0-0.79); Hep B Surf Ag Non-Reactive S/CO (NonReactive); Hep C IgG Ab Non-Reactive S/CO (NonReactive); Hep C Index 0.13 S/CO (0-0.79)
[2023-06-27 18:21] LABS: HBSAB Concentration 410.04 mIU/mL; Hep B Surf AB Reactive (NonReactive)
[2023-06-27] MEDS: Ipratropium/Albuterol 3 ML NEB NEB SCH (18:29)
[2023-06-27] MEDS: hydrALAZINE 25 MG TAB PO SCH ×2 (19:54→20:00)
[2023-06-27] MEDS: Sevelamer Carbonate 800 MG TAB PO SCH (20:37)
[2023-06-27] MEDS ORDERED: hydrALAZINE 20 MG/ML VIAL SLOW IVP PRN (21:01)
[2023-06-27] MEDS ORDERED: NIFEdipine XL 90 MG ER.TAB PO SCH (23:45)
[2023-06-28] MEDS: Labetalol HCl 100 MG/20 ML VIAL SLOW IVP SCH (00:12)
[2023-06-28] MEDS: Ipratropium/Albuterol 3 ML NEB NEB SCH ×4 (01:17→18:26)
[2023-06-28 05:25] LABS: #Eosinphils 0.1 thou/uL (0.0-0.7); #Monocytes 0.9 thou/uL (0.11-0.59); %Basophils 0.5 % (0.0-1.0); %Eosinophils 1.3 % (0.0-10.0); %Lymphocytes 16.6 % (21.0-51.0); %Monocytes 10.5 % (0.0-10.0); %Neutrophils 70.7 % (42.0-75.0); Hematocrit 32.7 % (42.0-52.0); Hemoglobin 10.3 g/dL (14.0-18.0); Mean Corpuscular HGB CONC 31.5 g/dL (32.0-36.0); Mean Corpuscular Hemoglobin 31.1 pg (27.0-31.0); Mean Corpuscular Volume 98.8 fl (78.0-98.0); Mean Platelet Volume 9.6 fL (7.4-10.4); Platelet Count 227 10x3/uL (130-400); RBC Distribution Width 15.4 % (11.5-14.5); Red Blood Cell (RBC) Count 3.31 mill/uL (4.70-6.10); White Blood Cell (WBC) Count 8.5 10x3/uL (4.8-10.8)
[2023-06-28 05:50] LABS: Anion Gap 19 mmol/L (10-20); BUN (Urea Nitrogen) 44 mg/dL (8.4-25.7); Calc. Creatinine Clearance 13 mL/min (70-130); Calcium 9.1 mg/dL (7.8-10.44); Carbon Dioxide 27 mmol/L (23-31); Chloride 96 mmol/L (98-107); Estimated GFR 5; Glucose 155 mg/dL (80-115); Potassium 4.7 mmol/L (3.5-5.1); Sodium 137 mmol/L (136-145)
[2023-06-28 07:15] LABS: Vancomycin, Random 22.3 ug/mL (See Comment)
[2023-06-28] MEDS ORDERED: Vancomycin Dialysis Sliding Scale (Wt > 99) FS SCH (07:30)
[2023-06-28] MEDS ORDERED: Heparin 10,000 UNITS/ 10 ML VIAL ONE (08:33)
[2023-06-28] MEDS ORDERED: Epoetin (ESRD) 10,000 UNITS/ML VIAL IVP SCH (09:00)
[2023-06-28] MEDS: Allopurinol 100 MG TAB PO SCH (11:45)
[2023-06-28] MEDS: Sevelamer Carbonate 800 MG TAB PO SCH ×3 (11:45→18:19)
[2023-06-28] MEDS: Heparin 5,000 UNITS/ML VIAL SC SCH ×3 (11:47→21:10)
[2023-06-28] MEDS: NIFEdipine XL 90 MG ER.TAB PO SCH (11:47)
[2023-06-28] MEDS: hydrALAZINE 25 MG TAB PO SCH ×3 (11:47→21:10)
[2023-06-28] MEDS: ACETYLCYSTEINE INH SCH ×2 (12:34→18:26)
[2023-06-28] MEDS ORDERED: Vancomycin HCl 500 MG in Sodium Chloride 0.9% 100 ML IVPB SCH ×2 (17:00→18:00)
[2023-06-28] MEDS: Cefepime 0.5 GM, Admixture Fee 1 EACH in Sodium Chloride 0.9% 100 ML IVPB SCH (17:37)
[2023-06-29] MEDS: ACETYLCYSTEINE INH SCH ×2 (00:50→07:02)
[2023-06-29] MEDS: Ipratropium/Albuterol 3 ML NEB NEB SCH ×3 (00:50→13:47)
[2023-06-29] MEDS: Labetalol HCl 100 MG/20 ML VIAL SLOW IVP SCH (01:06)
[2023-06-29 05:56] LABS: #Eosinphils 0.2 thou/uL (0.0-0.7); #Monocytes 0.8 thou/uL (0.11-0.59); #Neutrophils 3.7 thou/uL (1.40-6.50); %Basophils 0.6 % (0.0-1.0); %Eosinophils 2.6 % (0.0-10.0); %Lymphocytes 25.2 % (21.0-51.0); %Monocytes 12.9 % (0.0-10.0); %Neutrophils 58.4 % (42.0-75.0); Hematocrit 32.5 % (42.0-52.0); Hemoglobin 10.6 g/dL (14.0-18.0); Mean Corpuscular HGB CONC 32.6 g/dL (32.0-36.0); Mean Corpuscular Hemoglobin 31.7 pg (27.0-31.0); Mean Corpuscular Volume 97.3 fl (78.0-98.0); Mean Platelet Volume 9.7 fL (7.4-10.4); Platelet Count 198 10x3/uL (130-400); RBC Distribution Width 15.4 % (11.5-14.5); Red Blood Cell (RBC) Count 3.34 mill/uL (4.70-6.10); White Blood Cell (WBC) Count 6.4 10x3/uL (4.8-10.8)
[2023-06-29 06:35] LABS: Anion Gap 18 mmol/L (10-20); BUN (Urea Nitrogen) 40 mg/dL (8.4-25.7); Calc. Creatinine Clearance 14 mL/min (70-130); Calcium 9.3 mg/dL (7.8-10.44); Carbon Dioxide 28 mmol/L (23-31); Chloride 96 mmol/L (98-107); Estimated GFR 5; Glucose 132 mg/dL (80-115); Potassium 4.7 mmol/L (3.5-5.1); Sodium 137 mmol/L (136-145)
[2023-06-29] MEDS: Sevelamer Carbonate 800 MG TAB PO SCH ×2 (08:16→11:25)
[2023-06-29] MEDS: NIFEdipine XL 90 MG ER.TAB PO SCH (08:16)
[2023-06-29] MEDS: hydrALAZINE 25 MG TAB PO SCH (08:16)
[2023-06-29] MEDS: Heparin 5,000 UNITS/ML VIAL SC SCH (08:16)
[2023-06-29] MEDS: Allopurinol 100 MG TAB PO SCH (08:17)
[2023-06-29] MEDS ORDERED: GUAIFENESIN SF SOLN 200 MG/10 ML UDCUP PO PRN (11:09)
[2023-06-29 11:45] VITALS: BP 125/64; TEMP 97.5
[2023-06-29] MEDS: Cefepime 0.5 GM, Admixture Fee 1 EACH in Sodium Chloride 0.9% 100 ML IVPB SCH (13:09)
[2023-06-29] MEDS ORDERED: LevoFLOXacin 500 mg/D5W 500 MG in Premix Bag 1 BAG IVPB SCH (17:00)
[2023-07-04] MEDS ORDERED: cloNIDine 0.3mg/24 Hour PATCH TD SCH (09:00)
== END 2023-06-29 15:58 | disposition home or self-care (01) | DRG 177 ==
LOC: ERS 08:13 → 2SW 12:21
PROVIDERS: ADMIT Family Medicine; ATTEND Internal Medicine
DX: J15.6 Pneumonia due to other Gram-negative bacteria (principal); I21.A1 Myocardial infarction type 2; J96.01 Acute respiratory failure with hypoxia; N18.6 End stage renal disease; I13.2 Hypertensive heart and chronic kidney disease with heart failure and with stage 5 chronic kidney disease, or end stage renal disease; E87.20 Acidosis, unspecified; E11.22 Type 2 diabetes mellitus with diabetic chronic kidney disease; M10.9 Gout, unspecified; E87.5 Hyperkalemia; D63.1 Anemia in chronic kidney disease; I50.9 Heart failure, unspecified; I71.40 Abdominal aortic aneurysm, without rupture, unspecified; E83.39 Other disorders of phosphorus metabolism; E66.9 Obesity, unspecified; Z68.36 Body mass index [BMI] 36.0-36.9, adult; Z79.899 Other long term (current) drug therapy; Z79.4 Long term (current) use of insulin; Z99.2 Dependence on renal dialysis; Z20.822 Contact with and (suspected) exposure to COVID-19
CPT/HCPCS: 36415; 36416; 71045; 71275; 80048; 80053; 80202; 83605; 83735; 84484; 85025; 85379; 85610; 85730; 86704; 87040; 87633; 90935; 93005; 94640; 94760; 96365; 96367; G0257; J0360; J0692; J1644; J1956; J2765; J3370; J3370-JW; J3490; J7608; J7620; Q4081; Q9967

== ENCOUNTER 2023-07-26 12:14 | Emergency (ER) | payer MEDICARE, BC ==
[2023-07-26 13:37] LABS: #Basophils 0.1 thou/uL (0.0-0.2); #Eosinphils 0.1 thou/uL (0.0-0.7); #Monocytes 0.8 thou/uL (0.11-0.59); #Neutrophils 6.8 thou/uL (1.40-6.50); %Basophils 0.6 % (0.0-1.0); %Eosinophils 1.1 % (0.0-10.0); %Lymphocytes 17.9 % (21.0-51.0); %Neutrophils 71.9 % (42.0-75.0); Hematocrit 30.2 % (42.0-52.0); Mean Corpuscular HGB CONC 33.1 g/dL (32.0-36.0); Mean Corpuscular Hemoglobin 31.8 pg (27.0-31.0); Mean Corpuscular Volume 96.2 fl (78.0-98.0); Mean Platelet Volume 9.8 fL (7.4-10.4); Platelet Count 264 10x3/uL (130-400); RBC Distribution Width 15.3 % (11.5-14.5); Red Blood Cell (RBC) Count 3.14 mill/uL (4.70-6.10); White Blood Cell (WBC) Count 9.5 10x3/uL (4.8-10.8)
[2023-07-26 14:00] LABS: ALT (SGPT) 20 U/L (8-55); AST (SGOT) 15 U/L (5-34); Albumin 4.5 g/dL (3.4-4.8); Alkaline Phosphatase 60 U/L (40-110); Anion Gap 18 mmol/L (10-20); BUN (Urea Nitrogen) 30 mg/dL (8.4-25.7); Bilirubin, Total 0.6 mg/dL (0.2-1.2); Calc. Creatinine Clearance 0 mL/min (70-130); Carbon Dioxide 28 mmol/L (23-31); Chloride 96 mmol/L (98-107); Estimated GFR 8; Globulin 3.1 g/dL (2.4-3.5); Glucose 149 mg/dL (80-115); Potassium 4.3 mmol/L (3.5-5.1); Protein, Total 7.6 g/dL (5.8-8.1); Sodium 138 mmol/L (136-145)
== END 2023-07-26 14:44 | disposition home or self-care (01) ==
LOC: ERS 12:14
DX: R06.02 Shortness of breath (principal); D64.9 Anemia, unspecified; E11.22 Type 2 diabetes mellitus with diabetic chronic kidney disease; N18.6 End stage renal disease; Z99.2 Dependence on renal dialysis
CPT/HCPCS: 36415; 71045; 80053; 85025; 99285

== ENCOUNTER 2024-05-07 07:44 | Outpatient (CLI) | payer OTHER ==
[2024-05-07] MEDS ORDERED: Iopamidol 370 76% 100 ML VIAL ONE (10:37)
== END 2024-05-07 07:45 | disposition home or self-care (01) ==
LOC: CT 07:44
PROVIDERS: ATTEND Urology
DX: Z08 Encounter for follow-up examination after completed treatment for malignant neoplasm (principal); R93.422 Abnormal radiologic findings on diagnostic imaging of left kidney; Z90.5 Acquired absence of kidney; Z85.528 Personal history of other malignant neoplasm of kidney
CPT/HCPCS: 74170; Q9967

== ENCOUNTER 2025-05-22 08:01 | Outpatient (CLI) | payer OTHER ==
[2025-05-22] MEDS ORDERED: Iopamidol 370 76% 100 ML VIAL ONE (15:21)
== END 2025-05-22 08:02 | disposition home or self-care (01) ==
LOC: CT 08:01
PROVIDERS: ATTEND Urology
DX: C64.9 Malignant neoplasm of unspecified kidney, except renal pelvis (principal); N28.1 Cyst of kidney, acquired; K80.20 Calculus of gallbladder without cholecystitis without obstruction; I71.23 Aneurysm of the descending thoracic aorta, without rupture
CPT/HCPCS: 74160; Q9967